=== PATIENT | female | born 1970 | race Caucasian/White ===

== ENCOUNTER 2020-03-01 13:10 | Emergency (ER) | payer BC, SELFPAY ==
[2020-03-01 13:10] VITALS: BP 152/82; PULSE 120; RESP 16; TEMP 37.7; O2SAT 98; BMI 43.8
--- NOTE | 2020-03-01 13:27 | CT_ITS ---
PROCEDURE: CT ABDOMEN PELVIS W CON CLINICAL INDICATION: pain, vomiting Right upper quadrant pain with vomiting and nausea COMPARISON: No exams were available for comparison TECHNIQUE: IV Contrast: 75ML OPTIRAY 350 Oral Contrast None Axial images obtained with sagittal and coronal reformats. All CT scans at the facility use one or more dose reduction, viz: automated exposure control, ma/kV adjustment per patient size (including targeted exams where dose is matched to indication, i.e. head), or iterative reconstruction technique. FINDINGS: LOWER THORAX: No acute finding. On the most superior image there is a 7 mm nodular opacity in the inferior aspect of the right breast. Mammography and ultrasound suggested for further evaluation. ABDOMEN & PELVIS: Fatty infiltration of the liver. No focal liver lesion is evident. There is mild splenomegaly at 13 cm. The pancreas, adrenal glands, and kidneys have an unremarkable appearance. There are few small periportal lymph nodes. No renal or ureteral calculi. No evidence of appendicitis. There are few colonic diverticula but no evidence of diverticulitis. No pelvic mass abnormal fluid collection or focal inflammatory change of the pelvis. There is degenerative disc disease at L5-S1 with a left paracentral disc osteophyte complex IMPRESSION: 1. No acute abdominal or pelvic findings. 2. Mild splenomegaly. 3. Possible right breast nodule. Mammogram and ultrasound suggested for further evaluation. 4. Other nonacute findings as described above Dictated by: Olman Pedroza MD 03/01/2020 15:24 Olman Pedroza MD in [place] 03/01/2020 15:24
[2020-03-01 13:45] LABS: Microscopic, Urine URINE MICROSCOPIC (MICROSCOPIC)
[2020-03-01 13:49] LABS: Appearance,Urine CLEAR (Clear); Bilirubin,Urine Negative (Negative); Blood, Urine TRACE-L (Negative); Color,Urine YELLOW (Yellow); Glucose,Urine (UA) Negative (Negative); Ketones,Urine Negative (Negative); Leukocyte Esterase,Urine Negative (Negative); Nitrate,Urine Negative (Negative); Protein,Urine Negative (Negative); Specific Gravity, Urine 1.025 (1.005-1.030); Urobilinogen,Urine 0.2 EU/dl (0.2)
[2020-03-01 13:51] LABS: Basophils % 0.7 % (0.1-2.0); Eosinophils % 1.5 % (0.1-12.0); Hematocrit 43.1 % (37.0-47.0); Hemoglobin 14.4 g/dL (12.2-16.2); Lymphocytes % 33.4 % (10-50); Mean Corpuscular HGB Conc 33.3 g/dL (31.8-35.4); Mean Corpuscular Hemoglobin 28.2 pg (27.0-31.2); Mean Corpuscular Volume 84.7 fl (81-99); Mean Platelet Volume 7.3 fl (7.4-10.4); Monocytes % 3.3 % (1.7-9.3); Neutrophils % 61.2 % (37.0-80.0); Platelet Count 389 K/mm3 (142-424); Red Blood Count 5.09 M/mm3 (4.20-5.40); Red Cell Distribution Width 14.6 % (11.5-17.5); White Blood Count 13.4 K/mm3 (4.8-10.8)
[2020-03-01 13:52] LABS: Basophils # 0.1 K/mm3 (0-0.2); Eosinophils # 0.2 K/mm3 (0.0-0.4); Lymphocytes # 4.5 K/mm3 (0.7-4.5); Monocytes # 0.4 K/mm3 (0.1-1.0); Neutrophils # 8.2 K/mm3 (1.8-7.8)
[2020-03-01 13:56] LABS: Amorphous Sediment,Urine 1+ /lpf; RBC,Urine Occasional #/hpf (0-3)
[2020-03-01 14:12] LABS: Chloride 97 mmol/L (98-107); Potassium 3.7 mmoL/L (3.5-5.1); Sodium 133 mmol/L (136-145)
[2020-03-01 14:15] LABS: Alanine Aminotransferase 28 U/L (12-78); Albumin Level 4.1 g/dl (3.5-5.0); Albumin/Globulin Ratio 1.2 (1.1-1.8); Alkaline Phosphatase 99 U/L (38-126); Anion Gap 13.7 mEq/L (5-15); Aspartate Amino Transferase 48 U/L (14-36); Bilirubin,Total 0.4 mg/dl (0.2-1.3); Blood Urea Nitrogen 16 mg/dl (7-17); Calcium 9.4 mg/dl (8.4-10.2); Carbon Dioxide 26 mmol/L (22.0-30.0); Creatinine Clearance Estimated 110 mL/min (50-200); Estimated Glomerular Filt Rate 106 ml/min (>60); GFR (African American) 129 ML/MIN (>60); Globulin 3.5 g/dL (1.3-3.2); Glucose 103 mg/dl (74-100); Lipase 67 U/L (23-300); Total Protein,Serum 7.6 g/dl (6.3-8.2)
[2020-03-01 14:32] LABS: Troponin I < 0.01 ng/ml (0.00-0.034)
--- NOTE | 2020-03-01 14:36 | HMH.EDABDPAI ---
ED Disposition Clinical Impression: Dyspepsia Disposition: Home, Self-Care Condition on Discharge: Good Instructions: DI for Dyspepsia Prescriptions: Famotidine [Pepcid] 40 mg PO DAILY #10 tab Transmission Status: Pending to [facility] Ondansetron [Zofran 4mg ODT] 4 mg PO TIDP PRN #10 tab PRN Reason: Nausea Transmission Status: Pending to [facility] Referrals: Pavel Kate [Primary Care Provider] - - Critical Care Critical Care Time: No Attestation: On 03/01/20, the high probability of a clinically significant, sudden or life threatening deterioration of the following system(s) required my full and direct attention, intervention and personal management. The time I documented below is in addition to time spent performing reported procedures but includes the following listed in this critical care notation. Medical Decision Making - Medical Records Medical records reviewed: Yes: I reviewed the patient's medical records. - Monico Inquiry Pt receiving controlled substance: No Vital Signs: 03/01/20 13:10 Temperature 99.9 F H Temperature Source Oral Pulse Rate [Radial] 120 H Respiratory Rate 16 Blood Pressure [Right Arm] 152/82 H Blood Pressure Mean [Right Arm] 105 Blood Pressure Position [Right Arm] Sitting 02 Sat by Pulse Oximetry 98 Oxygen Delivery Method Room Air - Lab Data Lab Results 03/01/20 13:20: WBC 13.4 H, RBC 5.09, Hgb 14.4, Hct 43.1, MCV 84.7, MCH 28.2, MCHC 33.3, RDW 14.6, Plt Count 389, MPV 7.3 L, Neut % (Auto) 61.2, Lymph % (Auto) 33.4, Stokes % (Auto) 3.3, Eos % (Auto) 1.5, Baso % (Auto) 0.7, Neut # (Auto) 8.2 H, Lymph # (Auto) 4.5, Stokes # (Auto) 0.4, Eos # (Auto) 0.2, Baso # (Auto) 0.1 03/01/20 13:42: Urine Color Yellow, Urine Appearance Clear, Urine pH 6.0, Ur Specific [place] 1.025, Urine Protein Negative, Urine Glucose (UA) Negative, Urine Ketones Negative, Urine Blood Trace-l, Urine Nitrate Negative, Urine Bilirubin Negative, Urine Urobilinogen 0.2, Ur Leukocyte Esterase Negative, Urine RBC Occasional, Urine WBC 3-5, Ur Squamous Epith Cells 3-5, Amorphous Sediment 1+, Urine Bacteria None 03/01/20 13:59: Sodium 133 L, Potassium 3.7, Chloride 97 L, Carbon Dioxide 26, Anion Gap 13.7, BUN 16, Creatinine 0.60, Estimated Creat Clear 110, Estimated GFR 106, Est GFR ( Amer) 129, Glucose 103 H, Calcium 9.4, Total Bilirubin 0.4, AST 48 H, ALT 28, Alkaline Phosphatase 99, Troponin I < 0.01, Total Protein 7.6, Albumin 4.1, Globulin 3.5 H, Albumin/Globulin Ratio 1.2, Lipase 67 Result diagrams: 03/01/20 13:20 03/01/20 13:59 Orders (Tests/Meds): ED MEDICATIONS Generic Name Dose Route Start Last Admin Trade Name Enq PRN Reason Stop Dose Admin Sodium Chloride 8 ml 03/01/20 13:27 Sodium Chloride 0.9% 10ml Vial IV 03/31/20 13:26 NEEDED PRN dilute pepcid Sodium Chloride 10 ml 03/01/20 14:23 03/01/20 14:27 Sodium Chloride 0.9% 10ml Syr (Rad Only) IV 03/31/20 14:22 10 ml NEEDED PRN Administration Maintain IV Site Discontinued Medications Generic Name Dose Route Start Last Admin Trade Name Enq PRN Reason Stop Dose Admin Diphenhydramine HCl 25 mg 03/01/20 13:27 03/01/20 13:34 Diphenhydramine 50mg/Ml Vial IV 03/01/20 13:28 25 mg ONCE ONE Administration Famotidine 20 mg 03/01/20 13:27 03/01/20 13:37 Famotidine 20mg/2ml Vial IV 03/01/20 13:28 20 mg ONCE ONE Administration Sodium Chloride 1,000 mls @ 999 mls/hr 03/01/20 13:30 03/01/20 13:37 Sod Chlor 0.9% 1000ml Bag IV 03/01/20 14:30 999 mls/hr .Q1H1M MINNA Administration Ioversol 75 ml 03/01/20 14:23 03/01/20 14:27 Ioversol-350 (74%) 100ml Vial IV 03/01/20 14:24 75 ml ONCE ONE Administration Protocol Ketorolac Tromethamine 30 mg 03/01/20 13:27 03/01/20 13:38 Ketorolac 30mg/Ml Vial IM 03/01/20 13:28 Not Given ONCE ONE Ketorolac Tromethamine 30 mg 03/01/20 13:39 03/01/20 13:39 Ketorolac 30mg/Ml Vial IV
[2020-03-01 14:48] VITALS: BP 145/74; PULSE 118; RESP 15; TEMP 37.2; O2SAT 98
== END 2020-03-01 14:53 | disposition home or self-care (01) ==
PROVIDERS: Emergency Provider Emergency Medicine; PCP Family Medicine
DX: R10.13 Epigastric pain (principal); K21.9 Gastro-esophageal reflux disease without esophagitis; I10 Essential (primary) hypertension; Z79.899 Other long term (current) drug therapy
CPT/HCPCS: 74177; 80053; 81001; 83690; 84484; 85025; 96365; 96375; 99283; J2405; Q9967

== ENCOUNTER 2020-10-04 21:56 | Emergency (ER) | payer BC, SELFPAY ==
[2020-10-04 21:57] VITALS: BP 150/73; PULSE 96; RESP 22; TEMP 36.6; O2SAT 97; BMI 45.4
--- NOTE | 2020-10-04 22:12 | XR_ITS ---
PROCEDURE INFORMATION: Exam: XR Chest Exam date and time: 10/04/2020 10:12 PM Age: 50 years old Clinical indication: Cough and shortness of breath and wheezing; Patient HX: Cough, SOA, wheezing, nonsmoker; Additional info: SOB TECHNIQUE: Imaging protocol: XR of the chest. Views: 2 views. COMPARISON: CR XR CHEST 2V 05/25/2019 3:34 PM FINDINGS: Lungs: Unremarkable. No consolidation. Pleural spaces: Unremarkable. No pleural effusion. No pneumothorax. Heart/Mediastinum: Unremarkable. No cardiomegaly. Bones/joints: Unremarkable. IMPRESSION: No evidence of a new cardiopulmonary process.
--- NOTE | 2020-10-04 22:13 | ECG_ITS ---
APPROVED REPORT Exam: Resting ECG HR:93 bpm ECG Measurements Heart Rate 93 AXES IA 130 P 61 QRSd 98 QRS 61 QT 346 T 41 QTc 430 Conclusion Normal sinus rhythm Normal ECG Electronically signed by : Gunner Bryant, 10/05/2020 07:51:26
--- NOTE | 2020-10-04 22:19 | HMH.EDSOB ---
ED Disposition Clinical Impression: Viral URI with cough Asthma exacerbation Qualifiers: Asthma severity: moderate Asthma persistence: unspecified Qualified Code(s): J45.901 - Unspecified asthma with (acute) exacerbation Disposition: Home, Self-Care Condition on Discharge: Good Instructions: Common Cold, DI for Asthma -- Adult Additional Instructions: Albuterol inhaler every 4 hours as needed for continued symptoms. Return to the ED for any new or worsening symptoms and follow-up with your primary care within 3-4 days Prescriptions: Doxycycline Hyclate [Doxycycline 100mg Capsule] 100 mg PO Q12 7 Days #14 cap Transmission Status: Pending to [facility] Referrals: Pavel Kate [Primary Care Provider] - Time of Disposition: 00:46 - Critical Care Critical Care Time: No Attestation: On 10/04/20, the high probability of a clinically significant, sudden or life threatening deterioration of the following system(s) required my full and direct attention, intervention and personal management. The time I documented below is in addition to time spent performing reported procedures but includes the following listed in this critical care notation. Medical Decision Making - Medical Records Medical records reviewed: Yes: I reviewed the patient's medical records. - Monico Inquiry Pt receiving controlled substance: No Vital Signs: 10/04/20 21:57 10/04/20 22:39 10/04/20 23:01 Temperature 97.9 F Temperature Source Oral Pulse Rate 95 H 100 H Pulse Rate [Right] 96 H Respiratory Rate 22 22 13 Blood Pressure 132/49 L 98/68 L Blood Pressure [Right Arm] 150/73 H Blood Pressure Mean [Right Arm] 98 02 Sat by Pulse Oximetry 97 97 97 10/04/20 23:55 10/04/20 23:56 Temperature Temperature Source Pulse Rate 81 81 Pulse Rate [Right] Respiratory Rate Blood Pressure Blood Pressure [Right Arm] Blood Pressure Mean [Right Arm] 02 Sat by Pulse Oximetry Orders (Tests/Meds): ED MEDICATIONS Generic Name Dose Route Start Last Admin Trade Name Freq PRN Reason Stop Dose Admin Magnesium Sulfate 2 gm/ Sodium 104 mls @ 100 mls/hr 10/04/20 23:52 10/04/20 23:56 Chloride IV 10/05/20 00:54 100 mls/hr ONCE ONE Administration Discontinued Medications Generic Name Dose Route Start Last Admin Trade Name Freq PRN Reason Stop Dose Admin Albuterol Sulfate 4 puffs 10/04/20 22:22 10/04/20 22:36 Albuterol-Hfa 90mcg/Puff Inhaler 8gm 10/04/20 22:23 4 puffs ONCE ONE Administration Albuterol/Ipratropium 6 ml 10/04/20 23:34 10/04/20 23:55 Ipratropium/Albuterol 3 Ml Neb 10/04/20 23:35 6 ml ONCE ONE Administration Dexamethasone 8 mg 10/04/20 22:20 10/04/20 22:25 Dexamethasone 4mg Tablet PO 10/04/20 22:21 8 mg ONCE ONE Administration Miscellaneous 1 unit 10/04/20 22:22 10/04/20 22:36 Aerochamber/Optihaler 10/04/20 22:23 1 unit ONCE ONE Administration - Radiology Data #1 Image(s): Chest Image Reviewed: Yes I reviewed the patient's radiology results, Yes I have reviewed radiologist's interpretation Preliminary Findings: Normal/NAD Medical Decision Narrative: 50-year-old female who presents with shortness of breath with viral URI type symptoms. We have mild asthma and does not use medication on a regular basis. She is consistent with asthmatic exacerbation with reactive cough prolonged expiration and diffuse wheezing. Patient is not in respiratory distress and her O2 sats are appropriate. Chest x-ray demonstrates no acute focal pneumonia. Due to her increased cough history of bronchitis patient will be treated for atypical pneumonia and also given 8 mg of dexamethasone as well as 4 puffs of an albuterol MDI. Patient still continues to have moderate wheezing. He was given 2 doses of DuoNeb and 2 g of IV magnesium sulfate. Following these interventions patient's wheezing is significantly improved her shortness of breath has most
[2020-10-04 22:39] VITALS: BP 132/49; PULSE 95; RESP 22; O2SAT 97
[2020-10-04 23:01] VITALS: BP 98/68; PULSE 100; RESP 13; O2SAT 97
[2020-10-04 23:31] VITALS: BP 103/76; PULSE 94; RESP 19; O2SAT 97
[2020-10-04 23:55] VITALS: PULSE 81
[2020-10-04 23:56] VITALS: PULSE 81
[2020-10-05 00:05] VITALS: BP 134/61; PULSE 95; RESP 29; O2SAT 94
[2020-10-05 00:30] VITALS: BP 130/67; PULSE 94; RESP 19; O2SAT 95
[2020-10-05 01:01] VITALS: BP 108/56; PULSE 88; RESP 14; O2SAT 97
[2020-10-05 01:59] VITALS: BP 108/56; PULSE 88; RESP 16; TEMP 36.6; O2SAT 97
== END 2020-10-05 01:30 | disposition home or self-care (01) ==
PROVIDERS: Emergency Provider Student in an Organized Health Care Education/Training Program; PCP Family Medicine
DX: J06.9 Acute upper respiratory infection, unspecified (principal); J45.901 Unspecified asthma with (acute) exacerbation; I10 Essential (primary) hypertension; K21.9 Gastro-esophageal reflux disease without esophagitis; Z79.899 Other long term (current) drug therapy
CPT/HCPCS: 71046; 93005; 96365; 99282

== ENCOUNTER 2020-12-21 19:01 | Emergency (ER) | payer BC, SELFPAY ==
[2020-12-21 19:31] VITALS: BP 159/89; PULSE 108; RESP 22; TEMP 37; O2SAT 96; BMI 43.8
--- NOTE | 2020-12-21 19:35 | XR_ITS ---
PROCEDURE INFORMATION: Exam: XR Chest Exam date and time: 12/21/2020 7:35 PM Age: 50 years old Clinical indication: Shortness of breath; Additional info: SOA TECHNIQUE: Imaging protocol: XR of the chest. Views: 2 views. COMPARISON: CR XR CHEST 2V 10/04/2020 10:15 PM FINDINGS: Lungs: Unremarkable. No consolidation. Pleural spaces: No pleural effusion. No pneumothorax. Heart/Mediastinum: Normal heart size. Bones/joints: Unremarkable. IMPRESSION: No acute findings.
[2020-12-21 19:41] LABS: Adenovirus,PCR Not Detected (NotDetected); Bordetella Pertussis Not Detected (NotDetected); Chlamydophila Pneumoniae, PCR Not Detected (NotDetected); Coronavirus 19, PCR Not Detected (NotDetected); Coronavirus 229E Not Detected (NotDetected); Coronavirus NL63 Not Detected (NotDetected); Coronavirus OC43 Not Detected (NotDetected); Coronovirus HKU1,PCR Not Detected (NotDetected); Human Metapneumovirus Not Detected (NotDetected); Influenza A, PCR Not Detected (NotDetected); Influenza AH1, 2009 Not Detected (NotDetected); Influenza AH1, PCR Not Detected (NotDetected); Influenza AH3,PCR Not Detected (NotDetected); Influenza B, PCR Not Detected (NotDetected); Mycoplasma Pneumoniae, PCR Not Detected (NotDetected); Parainfluenza 1, PCR Not Detected (NotDetected); Parainfluenza 2, PCR Not Detected (NotDetected); Parainfluenza 3, PCR Not Detected (NotDetected); Parainfluenza 4, PCR Not Detected (NotDetected); Respiratory Syncytial Virus Not Detected (NotDetected)
--- NOTE | 2020-12-21 19:41 | HMH.EDUTC ---
[facility] Disposition Clinical Impression: Acute bronchitis Qualifiers: Bronchitis organism: unspecified organism Qualified Code(s): J20.9 - Acute bronchitis, unspecified Disposition: Home, Self-Care Condition on Discharge: Good Instructions: DI for Acute Bronchitis, Preventing the Spread of Coronavirus Discharge Instructions Additional Instructions: Drink plenty of fluids. Take tylenol or ibuprofen for pain or fever. Take the medications as directed. Follow up with your regular doctor. GO TO THE ER FOR ANY WORSENING SYMPTOMS Quarantine until you know the results of your covid-19 test. If it is positive, the health department should call you and give you further instructions about your length of Quarantine and other thing. The cough medication (promethazine dm) will make you drowsy, so don't drive or operate heavy machinery after taking it. Prescriptions: guaiFENesin [Mucinex 600mg tablet] 1 - 2 tab PO BIDP PRN #30 tab.er.12h PRN Reason: Congestion Transmission Status: Received by [facility] Benzonatate [Tessalon Perle 100mg Cap] 100 mg PO TIDP PRN #30 cap PRN Reason: Cough Transmission Status: Received by [facility] Azithromycin [Z-Levi 250mg Tab*] 250 mg PO UD DOSE PK #6 tab Transmission Status: Received by [facility] Referrals: Pavel Kate [Primary Care Provider] - Forms: Work/School Release Time of Disposition: 19:56 Medical Decision Making - Medical Records Medical records reviewed: No: I reviewed the patient's medical records. - Monico Inquiry Pt receiving controlled substance: No Vital Signs: 12/21/20 19:31 12/21/20 20:13 Temperature 98.6 F 98.8 F Temperature Source Oral Pulse Rate 109 H Pulse Rate [Left] 108 H Respiratory Rate 22 22 Blood Pressure 161/85 H Blood Pressure [Right Arm] 159/89 H Blood Pressure Mean [Right Arm] 112 02 Sat by Pulse Oximetry 96 - Lab Data Lab results reviewed: Yes: I reviewed the patient's lab results. Orders (Tests/Meds): ORDERS Category Date Time Status Full Resp Panel w/COVID ([facility]) Routine Lab 12/21/20 19:20 Received - Radiology Data #1 Image(s): Chest Image Reviewed: Yes I reviewed the patient's radiology image, Yes I have reviewed radiologist's interpretation Preliminary Findings: Normal/NAD [facility] HPI - General Stated complaint: covid test, prossible bronchitis Time Seen by Provider: 12/21/20 19:41 Mode of Arrival: Ambulatory Source of Information: Patient Limitations: No Limitations Description of Symptoms (Recalled from Triage Doc. by RN): PT C/O SOA, BODY ACHES, WHEEZING, PRODUCTIVE COUGH WITH GREEN SPUTUM, AND FEVER. PT IS EDEMATOUS. HEENT Symptoms (Recalled from RN notes): No Resp Symptoms (Recalled from RN notes): Yes (WHEEZING, SOA, PRODUCTIVE COUGH WITH GREEN SPUTUM) Skin Symptoms (Recalled from RN notes): No MS Symptoms (Recalled from RN notes): No Functional Status (Recalled from RN notes): BODY ACHES AND FEVER - History of Present Illness Provider Complaint: She states that for the past 4 days she has felt bad and had a cough. She has had diarrhea also. She has been vaccinated against covid-19. - Related Data Home Medications Medication Instructions Recorded Confirmed cetirizine 10 mg capsule 10 mg PO DAILY 08/21/18 03/01/20 omeprazole 20 mg capsule,delayed 20 mg PO DAILY 08/21/18 03/01/20 release amlodipine 10 mg tablet 10 mg PO DAILY 11/13/18 03/01/20 Propranolol HCl [Propranolol HCl 120 mg PO DAILY 05/25/19 03/01/20 ER] Sertraline HCl [Zoloft 50mg tablet] 50 mg PO DAILY 05/25/19 03/01/20 Telmisartan 80 mg PO DAILY 05/25/19 03/01/20 diphenhydramine HCl 25 mg capsule 25 mg PO HS 06/16/20 06/16/20 loratadine 10 mg tablet 10 mg PO DAILY 06/16/20 06/16/20 Previous Rx's Medication Instructions Recorded Famotidine [Pepcid] 40 mg PO DAILY #10 tab 03/01/20 Ondansetron [Zofran 4mg ODT] 4 mg PO TIDP PRN #10 tab 03/01/20 amoxicillin 875 mg-potassium 1
[2020-12-21 20:13] VITALS: BP 161/85; PULSE 109; RESP 22; TEMP 37.1
[2020-12-22 01:04] LABS: Rhinovirus/Enterovirus Detected (NotDetected)
== END 2020-12-21 20:13 | disposition home or self-care (01) ==
PROVIDERS: Emergency Provider Nurse Practitioner Family; PCP Family Medicine
DX: B34.8 Other viral infections of unspecified site (principal); J20.9 Acute bronchitis, unspecified; I10 Essential (primary) hypertension; K21.9 Gastro-esophageal reflux disease without esophagitis; Z79.899 Other long term (current) drug therapy
CPT/HCPCS: 71046; 87581; 87633; 87798; 99202; G0463

== ENCOUNTER → 2021-05-27 20:00 | Outpatient (CLI) | payer BC, SELFPAY | PROVIDERS: Visit Provider Nurse Practitioner Family | DX: J02.9 Acute pharyngitis, unspecified (principal); Z20.822 Contact with and (suspected) exposure to COVID-19 | CPT/HCPCS: C9803; U0003; U0005 ==

== ENCOUNTER 2022-10-26 11:27 | Emergency (ER) | payer BC, SELFPAY ==
[2022-10-26 11:28] VITALS: BP 131/84; PULSE 82; RESP 18; TEMP 37.2; O2SAT 96; BMI 51.6
--- NOTE | 2022-10-26 11:45 | EXP.UTC ---
Discharge Plan Disposition Patient Disposition: Home, Self-Care Condition: Good Prescriptions Prescriptions: New amoxicillin-pot clavulanate 875-125 mg Tablet 1 tab PO Q12H 10 Days Qty: 20 0RF guaifenesin [Mucinex] 600 mg tablet extended release 12hr 600 - 1,200 mg PO BID PRN (Reason: cough/congestion) Qty: 20 0RF No Action omeprazole 20 mg capsule,delayed release(DR/EC) 20 mg PO DAILY Zyrtec 10 mg capsule 10 mg PO DAILY loratadine [Allergy Relief (loratadine)] 10 mg tablet 10 mg PO DAILY diphenhydramine HCl [Allergy (diphenhydramine)] 25 mg capsule 25 mg PO HS ondansetron 8 mg tablet,disintegrating 8 mg PO Q8H PRN (Reason: nausea and vomiting) 4 Days Qty: 12 0RF amlodipine 10 mg tablet 10 mg PO DAILY telmisartan 80 tablet 80 mg PO DAILY propranolol 120 capsule,extended release 24 hr 120 mg PO DAILY sertraline 50 MG tablet 50 mg PO DAILY doxycycline hyclate 100 MG capsule 100 mg PO Q12 7 Days Qty: 14 0RF famotidine 40 MG tablet 40 mg PO DAILY Qty: 10 0RF Referrals Follow up/Referrals: Pavel Kate [Primary Care Provider] - See instructions Activity Restrictions/Add. Instructions Additional Instructions/Restrictions: *Monitor Temp, Over the counter Motrin or Tylenol as directed/as needed Tylenol every 4 hours and Motrin every 6 hours (as long as your family doctor has told you that you can take it) for fever or pain. and straight to ER if unable to lower temp less than 101.0 after medication given *Warm salt water gargles may help to soothe the throat *Throat Lozenges? *Warm fluids like tea with honey may help to soothe the throat? *Sleep elevated *Humidifier/Vaporizer Your throat swab was sent for culture. Those results are typically sent to your primary care. Be sure to follow up in 2-3 days with your family doctor/primary care physician if no improvement so they can review those result and treat if necessary. If you don?t have a primary care doctor, I recommend you get one but in the mean time, you will have to return to a walk in clinic Follow up IMMEDIATELY for new or worsening symptoms or no Noticeable improvement over the next 48-72 hours. 911 for difficulty breathing or swallowing Clinical Impressions Clinical Impression: Sinusitis Stand Alone Forms Stand Alone Forms: Work/School Release Instructions Patient Instructions: DI for Sinusitis, Sinusitis Discharge ED Provider: Sherry Kilpatrick [facility] [place] HPI General Stated complaint: Blisters in throat, RT ear pain, Congestion Mode of Arrival: Ambulatory Source of Information: Patient Limitations: No Limitations Time Seen by Provider: 10/26/22 11:45 Description of Symptoms (Recalled from Triage Doc. by RN): Complaint of right ear and throat pain for 3 days. HEENT Symptoms (Recalled from RN notes): Yes Resp Symptoms (Recalled from RN notes): No Skin Symptoms (Recalled from RN notes): No MS Symptoms (Recalled from RN notes): No Functional Status (Recalled from RN notes): wnl History of Present Illness Provider Complaint: Patient states that she has been having pain in her right ear and sinus pain and pressure for close to a week and this morning she woke up and feels like she has blisters on her throat and hurts when she swallows States feels scratchy not sure if she may have strep throat or from the drainage in the back of her throat so she came in Related Data Home Medications Medication Instructions Recorded Confirmed cetirizine 10 mg capsule (Zyrtec) 10 mg PO DAILY Allergy symptoms 08/21/18 05/27/21 omeprazole 20 mg capsule,delayed 20 mg PO DAILY GERD 08/21/18 05/27/21 release amlodipine 10 mg tablet 10 mg PO DAILY Hypertension 11/13/18 05/27/21 propranolol 120 mg capsule,24 120 mg PO DAILY Hypertension 05/25/19 05/27/21 hr,extended release sertraline 50 mg tablet 50 mg PO DAILY HEART RATE 05/25/19 05/27/21 telmisartan 80 mg tablet 80 mg
[2022-10-26 11:56] LABS: UTC Strep Screen (Rapid) Negative (Negative)
[2022-10-26 12:07] VITALS: BP 131/84; PULSE 82; RESP 18; TEMP 37.2; O2SAT 96
== END 2022-10-26 12:08 | disposition home or self-care (01) ==
PROVIDERS: Emergency Provider Nurse Practitioner; PCP Family Medicine
DX: J01.90 Acute sinusitis, unspecified (principal); H92.01 Otalgia, right ear; R07.0 Pain in throat
CPT/HCPCS: 87880; 99212; 99214; G0463

== ENCOUNTER 2023-07-05 07:22 | Emergency (ER) | payer BC, SELFPAY ==
[2023-07-05] VITALS (12 sets, daily range): BP systolic 131–215; BP diastolic 70–112; PULSE 77–94; RESP 12–25; TEMP 37; O2SAT 95–97; BMI 47.0
--- NOTE | 2023-07-05 07:21 | ECG_ITS ---
APPROVED REPORT Exam: Resting ECG HR:94 bpm ECG Measurements Heart Rate 94 AXES MT 162 P 68 QRSd 102 QRS 64 QT 333 T 51 QTc 385 Conclusion SINUS RHYTHM NORMAL ECG UNCONFIRMED REPORT Electronically signed by : Gunner Bryant MD 07/05/2023 19:03:04
--- NOTE | 2023-07-05 07:24 | ED_ITS ---
Discharge Plan Disposition Patient Disposition: Home, Self-Care Condition: Good Prescriptions Prescriptions: No Action omeprazole 20 mg capsule,delayed release(DR/EC) 20 mg PO DAILY loratadine [Allergy Relief (loratadine)] 10 mg tablet 10 mg PO DAILY diphenhydramine HCl [Allergy (diphenhydramine)] 25 mg capsule 25 mg PO HS amlodipine 10 mg tablet 10 mg PO DAILY telmisartan 80 tablet 80 mg PO DAILY sertraline 50 MG tablet 50 mg PO DAILY celecoxib 200 mg capsule 200 mg PO BID Patient Comments: TAKE 1 CAPSULE BY MOUTH TWICE DAILY desog-e.estradiol/e.estradiol [Azurette (28)] 0.15-0.02 mgx21 /0.01 mg x 5 tablet 1 tab PO DAILY Patient Comments: TAKE 1 TABLET BY MOUTH ONCE DAILY Velivet Triphasic Regimen (28) 0.1/.125/.15-25 mg-mcg tablet 1 tab PO DAILY Patient Comments: TAKE 1 TABLET BY MOUTH ONCE DAILY cyanocobalamin (vitamin B-12) 500 mcg tablet 500 mcg PO DAILY Patient Comments: TAKE 1 TABLET BY MOUTH ONCE DAILY cholecalciferol (vitamin D3) 125 mcg (5,000 unit) capsule 125 mcg PO DAILY Patient Comments: TAKE 1 CAPSULE BY MOUTH ONCE DAILY famotidine 40 MG tablet 40 mg PO DAILY Qty: 10 0RF Referrals Follow up/Referrals: Pavel Kate [Primary Care Provider] - See instructions Activity Restrictions/Add. Instructions Additional Instructions/Restrictions: Please return to the emergency department if you experience any new or worsening symptoms. Clinical Impressions Clinical Impression: Headache Qualifiers: Headache type: other headache syndrome Qualified Code(s): G44.89 - Other headache syndrome Stand Alone Forms Stand Alone Forms: Work/School Release Discharge ED Provider: Mamadou Hernandez General Adult HPI General Chief complaint: Chest Pain Stated complaint: chest pain Time Seen by Provider: 07/05/23 07:24 History of Present Illness HPI narrative: Patient presents with multiple complaints, initially describes right-sided chest pain that is nonradiating nonpleuritic nonexertional nonreproducible with no associated palpitations or hemoptysis or leg pain or leg swelling. Additionally describes headache on her right side consistent with migrainous pathology in the past. She denies any thunderclap onset of the symptoms. They were gradual and slowly worsening. No numbness or tingling. No visual complaints. No fevers or chills. No nausea or vomiting. No previous therapies. Per chart review does have history of asthma but denies any shortness of breath. No blood thinner usage. No right extremity pain. Please note that above description of symptoms, in this electronic medical record under categorization of recalled from ER triage doctor by RN are reflective of an initial nursing assessment, however, is not reflective of my fu ll history and physical exam that was personally taken and clarified. Consequentially, this preceding description of symptoms, which may include the patient's categorized chief complaint in the EMR, do not reflect my personal clinical impression, and the ultimate description of history of present illness and patient stated complaints should be deferred to this section of the note. Unless stated otherwise or congruent with this section of the note, additional signs, symptoms, or incongruence should be interpreted as inaccurate with my clinical impression. Related Data Home Medications Medication Instructions Recorded Confirmed omeprazole 20 mg capsule,delayed 20 mg PO DAILY GERD 08/21/18 07/05/23 release amlodipine 10 mg tablet 10 mg PO DAILY Hypertension 11/13/18 07/05/23 sertraline 50 mg tablet 50 mg PO DAILY HEART RATE 05/25/19 07/05/23 telmisartan 80 mg tablet 80 mg PO DAILY Hypertension 05/25/19 07/05/23 diphenhydramine HCl 25 mg capsule 25 mg PO HS 06/16/20 07/05/23 (Allergy (diphenhydramine)) loratadine 10 mg tablet (Allergy 10 mg PO DAILY 06/16/20 07/05/23 Relief (loratadine)) celecoxib 200 mg capsule 200 mg PO BID 07/05/23 07/05/23 cholecalciferol (vitamin D3) 125 125 mcg PO DAILY 07/05/23 07/05/23 mcg (5,000 unit) capsule cyanocobalamin (vitamin B-12) 500 500 mcg PO DAILY 07/05/23 07/05/23 mcg tablet desogestrel-e.estradiol 0.15 1 tab PO DAILY 07/05/23 07/05/23 mg-0.02 mg(21)/e.estrad 0.01 mg(5) tablet (Anup (28)) desogestrel-ethinyl estradiol 0.1 1 tab PO DAILY 07/05/23 07/05/23 mg/0.125 mg/0.15 mg-25 mcg tablet (Velivet Triphasic Regimen (28)) Previous Rx's Medication Instructions Recorded famotidine 40 mg tablet 40 mg PO DAILY #10 tabs 03/01/20 Allergies Allergy/AdvReac Type Severity Reaction Status Date / Time prednisone [PREDNISONE] Allergy Mild Verified 05/27/21 13:46 [facility] Disclaimer: The information contained in this section may have been updated after the patient was seen, as this information can be updated by other users. Social History Smoking Status: Never smoker alcohol intake: never substance use type: denies use current occupational status: employed Travel in the last 8 weeks: None household members: other housing: house ROS Obtained: Yes Systems reviewed as appropriate & no additional complaints except as documented As per HPI Physical Exam General General appearance: alert and in no apparent distress Head Head exam: atraumatic and normocephalic Eye Eye exam: Present normal appearance Neck Neck exam: Present normal inspection Chest Chest inspection: Present normal inspection and symmetric chest wall rise Respiratory Respiratory exam: Present normal lung sounds bilaterally; Absent respiratory distress Cardiovascular Cardiovascular exam: Present regular rate and normal rhythm Abdominal Exam Abdominal exam: Present soft Neurological Exam Neurological exam: Present alert, oriented X3 and CN II-XII intact Psychiatric Psychiatric exam: Present normal affect and normal mood Skin Skin exam: Present warm and dry Medical Decision Making Medical Records Medical records reviewed: Yes I reviewed the patient's medical records. Monico Inquiry Pt receiving controlled substance: No Vital Signs: 07/05/23 07:23 07/05/23 07:40 07/05/23 07:30 Temperature 98.6 F Temperature Source Oral Pulse Rate 88 88 Pulse Rate [Right] 92 H Respiratory Rate 25 H 12 Blood Pressure 169/83 H Blood Pressure [Right Arm] 145/77 H Blood Pressure Mean [Right Arm] 99 02 Sat by Pulse Oximetry 95 96 Oxygen Delivery Method Room Air 07/05/23 08:00 07/05/23 08:02 07/05/23 08:30 Temperature Temperature Source Pulse Rate 86 89 83 Pulse Rate [Right] Respiratory Rate 15 13 15 Blood Pressure 215/112 H 200/84 H Blood Pressure [Right Arm] Blood Pressure Mean [Right Arm] 02 Sat by Pulse Oximetry 96 97 96 Oxygen Delivery Method Room Air Room Air 07/05/23 08:57 07/05/23 09:01 07/05/23 09:31 Temperature Temperature Source Pulse Rate 85 79 78 Pulse Rate [Right] Respiratory Rate 13 19 22 Blood Pressure 150/73 H 146/71 H 137/72 Blood Pressure [Right Arm] Blood Pressure Mean [Right Arm] 02 Sat by Pulse Oximetry 97 95 97 Oxygen Delivery Method Room Air Room Air Room Air 07/05/23 10:01 07/05/23 10:31 07/05/23 10:50 Temperature 98.6 F Temperature Source Oral Pulse Rate 94 H 78 77 Pulse Rate [Right] Respiratory Rate 17 20 19 Blood Pressure 151/70 H 131/70 131/70 Blood Pressure [Right Arm] Blood Pressure Mean [Right Arm] 02 Sat by Pulse Oximetry 96 95 Oxygen Delivery Method Room Air Room Air Room Air Lab Data Lab Results 07/05/23 07:25: WBC 11.4 H, RBC 4.21, Hgb 12.4, Hct 37.0, MCV 88.0, MCH 29.6, MCHC 33.6, RDW 14.7, Plt Count 337, MPV 7.4, Neut % (Auto) 62.3, Lymph % (Auto) 32.6, Centre % (Auto) 3.4, Eos % (Auto) 1.3, Baso % (Auto) 0.4, Neut # (Auto) 7.1, Lymph # (Auto) 3.7, Centre # (Auto) 0.4, Eos # (Auto) 0.2, Baso # (Auto) 0.1, Sodium 139, Potassium 3.3 L, Chloride 103, Carbon Dioxide 33 H, Anion Gap 6.3, BUN 10, Creatinine 0.70, Estimated Creat Clear 91, Estimated GFR 88, Est GFR ( Amer) 106, Glucose 118 H, Calcium 9.2, Total Bilirubin 0.7, AST 50 H, ALT 46, Alkaline Phosphatase 96, Troponin I < 0.01, Total Protein 7.5, Albumin 4.1, Globulin 3.4 H, Albumin/Globulin Ratio 1.2 07/05/23 07:54: SARS-CoV-2 (PCR) Not detected, Influenza A Untype (PCR) Not detected, Influenza Type B (PCR) Not detected 07/05/23 09:58: Troponin I < 0.01 07/05/23 07:25 07/05/23 07:25 Orders (Tests/Meds): ED MEDICATIONS Discontinued Medications Generic Name Dose Route Start Last Admin Trade Name Westley PRN Reason Stop Dose Admin Aspirin 325 mg 07/05/23 07:38 07/05/23 07:53 Aspirin 325mg Tablet PO 07/05/23 07:39 325 mg ONCE ONE Administration Diphenhydramine HCl 25 mg 07/05/23 08:07 07/05/23 08:26 Diphenhydramine 50mg/Ml Vial IV 07/05/23 08:08 25 mg ONCE ONE Administration Lactated Ringer's 1,000 mls @ 999 mls/hr 07/05/23 08:07 07/05/23 08:25 Lactated Ringer's 1000 Ml Bag IV 07/05/23 09:07 999 mls/hr .Q1H1M ONE Administration Magnesium Sulfate 2 gm in 50 mls @ 50 mls/hr 07/05/23 08:07 07/05/23 08:29 Magnesium Sulfate 2gm/50ml Premix IV 07/05/23 09:06 50 mls/hr ONCE ONE Administration Ketorolac Tromethamine 15 mg 07/05/23 08:07 07/05/23 08:26 Ketorolac 30mg/Ml Vial IV 07/05/23 08:08 15 mg ONCE ONE Administration Nitroglycerin 0.4 mg 07/05/23 07:38 07/05/23 07:52 Nitroglycerin 0.4mg Sl Tablet SL 08/04/23 07:37 0.4 mg Q5MINP PRN Administration Chest Pain Prochlorperazine Edisylate 10 mg 07/05/23 08:07 07/05/23 08:26 Prochlorperazine 10mg/2ml Vial IM 07/05/23 08:08 Not Given ONCE ONE Prochlorperazine Edisylate 10 mg 07/05/23 08:27 07/05/23 08:28 Prochlorperazine 10mg/2ml Vial IV 07/05/23 08:28 10 mg ONCE ONE Administration Sodium Chloride 10 ml 07/05/23 07:51 07/05/23 08:27 Sodium Chloride 0.9% 10ml Flush Syringe IV 08/04/23 07:50 10 ml NEEDED PRN Administration Maintain IV Site ORDERS Category Date Time Status XR chest 2V Stat Exams 07/05/23 07:38 Completed CBC w/Auto Diff [Complete Blood Count Auto Diff] Stat Lab 07/05/23 07:25 Completed CMP [Comprehensive Metabolic Panel] Stat Lab 07/05/23 07:25 Completed Rapid PCR Covid and Flu A/B Stat Lab 07/05/23 07:54 Completed Troponin I Q2H Lab 07/05/23 07:25 Completed Troponin I Q2H Lab 07/05/23 09:58 Completed ECG initial Besson Routine Y 07/05/23 07:21 Completed HEART Score History (anamnesis): Moderately suspicious ECG: Non-specific disturbance Age: <45 years Risk factors: 1-2 risk factors Troponin: </= normal limit HEART Score: 3 Medical Decision Narrative: Patient with history and exam per above presenting for evaluation of multiple complaints including chest pain, headache Diagnoses considered include migraine, ACS, pneumonia, viral URI, hypovolemia, p atient's HPI, especially in the absence of any neurologic deficits on exam and benign clinical appearance did not warrant workup for vertebral artery dissection at this time. ED workup and treatment included: ED MEDICATIONS Discontinued Medications Generic Name Dose Route Start Last Admin Trade Name Freq PRN Reason Stop Dose Admin Aspirin 325 mg 07/05/23 07:38 07/05/23 07:53 Aspirin 325mg Tablet PO 07/05/23 07:39 325 mg ONCE ONE Administration Diphenhydramine HCl 25 mg 07/05/23 08:07 07/05/23 08:26 Diphenhydramine 50mg/Ml Vial IV 07/05/23 08:08 25 mg ONCE ONE Administration Lactated Ringer's 1,000 mls @ 999 mls/hr 07/05/23 08:07 07/05/23 08:25 Lactated Ringer's 1000 Ml Bag IV 07/05/23 09:07 999 mls/hr .Q1H1M ONE Administration Magnesium Sulfate 2 gm in 50 mls @ 50 mls/hr 07/05/23 08:07 07/05/23 08:29 Magnesium Sulfate 2gm/50ml Premix IV 07/05/23 09:06 50 mls/hr ONCE ONE Administration Ketorolac Tromethamine 15 mg 07/05/23 08:07 07/05/23 08:26 Ketorolac 30mg/Ml Vial IV 07/05/23 08:08 15 mg ONCE ONE Administration Nitroglycerin 0.4 mg 07/05/23 07:38 07/05/23 07:52 Nitroglycerin 0.4mg Sl Tablet SL 08/04/23 07:37 0.4 mg Q5MINP PRN Administration Chest Pain Prochlorperazine Edisylate 10 mg 07/05/23 08:07 07/05/23 08:26 Prochlorperazine 10mg/2ml Vial IM 07/05/23 08:08 Not Given ONCE ONE Prochlorperazine Edisylate 10 mg 07/05/23 08:27 07/05/23 08:28 Prochlorperazine 10mg/2ml Vial IV 07/05/23 08:28 10 mg ONCE ONE Administration Sodium Chloride 10 ml 07/05/23 07:51 07/05/23 08:27 Sodium Chloride 0.9% 10ml Flush Syringe IV 08/04/23 07:50 10 ml NEEDED PRN Administration Maintain IV Site ORDERS Category Date Time Status XR chest 2V Stat Exams 07/05/23 07:38 Completed CBC w/Auto Diff [Complete Blood Count Auto Diff] Stat Lab 07/05/23 07:25 Completed CMP [Comprehensive Metabolic Panel] Stat Lab 07/05/23 07:25 Completed Rapid PCR Covid and Flu A/B Stat Lab 07/05/23 07:54 Completed Troponin I Q2H Lab 07/05/23 07:25 Completed Troponin I Q2H Lab 07/05/23 09:58 Completed ECG initial Besson Routine Y 07/05/23 07:21 Completed Labs were independently interpreted by me, significant for leukocytosis to 11.4, troponins within normal limits Imaging was independently visualized and interpreted by me, significant for no acute findings. Please refer to radiology report for full details. My clinical impression at this time is most consistent with migrainous headache as patient has marked improvement of symptoms after migraine cocktail. I discussed my clinical impression with patient and answered all questions. At this time, the evidence for any other entities in the differential is insufficient to warrant any further testing or ED observation. This was explained to the patient. The patient was advised that persistent or worsening symptoms require further evaluation. I confirmed the patient's understanding of this discussion. Critical Care Critical Care Time Critical Care Time: No
--- NOTE | 2023-07-05 07:38 | XR_ITS ---
FINAL REPORT CLINICAL HISTORY: L sided CP, radiates to shoulder/neck COMPARISON: 03/24/2016 FINDINGS: PA and lateral views of the chest were obtained. The cardiac and mediastinal silhouettes are within normal limits. The lungs are clear. There is no pleural effusion or pneumothorax. No acute osseous abnormality is identified. IMPRESSION: No radiographic evidence of acute cardiac or pulmonary disease. Unchanged from prior. Reviewed, Interpreted and Dictated by Jelena Rich MD Transcribed by Alcira Melara Authenticated and [facility]
[2023-07-05 07:50] LABS: Basophils # 0.1 K/mm3 (0-0.2); Basophils % 0.4 % (0.1-2.0); Eosinophils # 0.2 K/mm3 (0.0-0.4); Eosinophils % 1.3 % (0.1-12.0); Hemoglobin 12.4 g/dL (12.2-16.2); Lymphocytes # 3.7 K/mm3 (0.7-4.5); Lymphocytes % 32.6 % (10-50); Mean Corpuscular HGB Conc 33.6 g/dL (31.8-35.4); Mean Corpuscular Hemoglobin 29.6 pg (27.0-31.2); Mean Platelet Volume 7.4 fl (7.4-10.4); Monocytes # 0.4 K/mm3 (0.1-1.0); Monocytes % 3.4 % (1.7-9.3); Neutrophils # 7.1 K/mm3 (1.8-7.8); Neutrophils % 62.3 % (37.0-80.0); Platelet Count 337 K/mm3 (142-424); Red Blood Count 4.21 M/mm3 (4.20-5.40); Red Cell Distribution Width 14.7 % (11.5-17.5); White Blood Count 11.4 K/mm3 (4.8-10.8)
[2023-07-05] MEDS: NITROGLYCERIN 0.4MG SL TABLET 0.400000000000000022 MG SL (07:52)
[2023-07-05] MEDS: ASPIRIN 325MG TABLET 325 MG PO (07:53)
[2023-07-05 07:55] LABS: Chloride 103 mmol/L (98-107)
[2023-07-05 07:56] LABS: Potassium 3.3 mmoL/L (3.5-5.1); Sodium 139 mmol/L (136-145)
[2023-07-05 07:58] LABS: Alanine Aminotransferase 46 U/L (12-78); Alkaline Phosphatase 96 U/L (38-126); Aspartate Amino Transferase 50 U/L (14-36); Bilirubin,Total 0.7 mg/dl (0.2-1.3); Blood Urea Nitrogen 10 mg/dl (7-17); Creatinine Clearance Estimated 91 mL/min (50-200); Estimated Glomerular Filt Rate 88 ml/min (>60); GFR (African American) 106 ML/MIN (>60)
[2023-07-05 07:59] LABS: Albumin Level 4.1 g/dl (3.5-5.0); Albumin/Globulin Ratio 1.2 (1.1-1.8); Anion Gap 6.3 mEq/L (5-15); Calcium 9.2 mg/dl (8.4-10.2); Carbon Dioxide 33 mmol/L (22.0-30.0); Globulin 3.4 g/dL (1.3-3.2); Glucose 118 mg/dl (74-100); Total Protein,Serum 7.5 g/dl (6.3-8.2)
--- NOTE | 2023-07-05 08:01 | PC.NURSE ---
turned pt lights off call light at bs
[2023-07-05 08:02] LABS: Coronavirus 19, PCR Not Detected (NotDetected); Influenza A, PCR Not Detected (NotDetected); Influenza B, PCR Not Detected (NotDetected)
--- NOTE | 2023-07-05 08:07 | PC.NURSE ---
Rounded on pt, nitro has not relieved her shoulder, neck, and back pain. States now her head is about to bust . Dr. Hernandez notified of this and new orders placed.
[2023-07-05 08:11] LABS: Troponin I < 0.01 ng/ml (0.00-0.034)
[2023-07-05] MEDS: LACTATED RINGERS 1000ML 1,000 ML 999 ML IV (08:25)
[2023-07-05] MEDS: diphenhydrAMINE 50MG/ML VIAL 25 MG IV (08:26)
[2023-07-05] MEDS: KETOROLAC 30MG/ML VIAL 15 MG IV (08:26)
[2023-07-05] MEDS: SODIUM CHLORIDE 0.9% 10ML FLUSH SYRINGE 10 ML IV (08:27)
[2023-07-05] MEDS: PROCHLORPERAZINE 10MG/2ML VIAL 10 MG IV (08:28)
[2023-07-05] MEDS: MAGNESIUM SULFATE IN WATER 2 GM/50 ML PIGGYBACK IV (08:29)
--- NOTE | 2023-07-05 09:00 | PC.NURSE ---
ROUNDED ON PT STATED NO NEEDS AT THIS TIME,CALL LIGHT AT BS
[2023-07-05 10:27] LABS: Troponin I < 0.01 ng/ml (0.00-0.034)
--- NOTE | 2023-07-05 10:33 | PC.NURSE ---
ROUNDED ON PT STATED NO NEEDS AT THIS TIME,CALL LIGHT AT BS
--- NOTE | 2023-07-05 10:59 | PC.NURSE ---
Dr. Hernandez at bedside discussing d/c and results.
--- NOTE | 2023-07-05 12:41 | PC.NURSE ---
Reviewed pt's d/c instructions with her, however she still has part of her Magnesium left to run. Will complete infusion and then d/c from room.
== END 2023-07-05 12:24 | disposition home or self-care (01) ==
PROVIDERS: Emergency Provider Emergency Medicine; PCP Family Medicine
DX: G44.89 Other headache syndrome (principal); R07.9 Chest pain, unspecified; J45.909 Unspecified asthma, uncomplicated; D72.829 Elevated white blood cell count, unspecified
CPT/HCPCS: 71046; 80053; 84484; 85025; 87636; 93005; 96361; 96365; 96375; 99285; J3475

== ENCOUNTER 2024-06-11 10:51 | Emergency (ER) | payer BC, SELFPAY ==
[2024-06-11] VITALS (10 sets, daily range): BP systolic 167–216; BP diastolic 81–108; PULSE 88–113; RESP 18–20; TEMP 36.7–37.2; O2SAT 96–99; BMI 48.5
--- NOTE | 2024-06-11 12:39 | EXP.UTC ---
Discharge Plan Prescriptions Prescriptions: No Action omeprazole 20 mg capsule,delayed release(DR/EC) 20 mg PO DAILY loratadine [Allergy Relief (loratadine)] 10 mg tablet 10 mg PO DAILY diphenhydramine HCl [Allergy (diphenhydramine)] 25 mg capsule 25 mg PO HS amlodipine 10 mg tablet 10 mg PO DAILY telmisartan 80 tablet 80 mg PO DAILY sertraline 50 MG tablet 50 mg PO DAILY celecoxib 200 mg capsule 200 mg PO BID Patient Comments: TAKE 1 CAPSULE BY MOUTH TWICE DAILY desog-e.estradiol/e.estradiol [Azurette (28)] 0.15-0.02 mgx21 /0.01 mg x 5 tablet 1 tab PO DAILY Patient Comments: TAKE 1 TABLET BY MOUTH ONCE DAILY Velivet Triphasic Regimen (28) 0.1/.125/.15-25 mg-mcg tablet 1 tab PO DAILY Patient Comments: TAKE 1 TABLET BY MOUTH ONCE DAILY cyanocobalamin (vitamin B-12) 500 mcg tablet 500 mcg PO DAILY Patient Comments: TAKE 1 TABLET BY MOUTH ONCE DAILY cholecalciferol (vitamin D3) 125 mcg (5,000 unit) capsule 125 mcg PO DAILY Patient Comments: TAKE 1 CAPSULE BY MOUTH ONCE DAILY famotidine 40 MG tablet 40 mg PO DAILY Qty: 10 0RF Referrals Follow up/Referrals: Pavel Kate [Primary Care Provider] - See instructions Clinical Impressions Clinical Impression: Hypertension, Headache Print Language Print Language: Slovak Discharge ED Provider: [facility] [place] HPI General Stated complaint: Headache, Neck getting stiff Time Seen by Provider: 06/11/24 12:39 History of Present Illness Provider Complaint: She states that she has had a worsening head ache (occipital area) for the past 1 day. She has also had neck stiffness and upper back pain. She states that throughout last night she had periods of tachycardia. 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 Related Data Home Medications ?Medication ?Instructions ?Recorded ?Confirmed omeprazole 20 mg capsule,delayed 20 mg PO DAILY GERD 08/21/18 06/11/24 release amlodipine 10 mg tablet 10 mg PO DAILY Hypertension 11/13/18 07/05/23 sertraline 50 mg tablet 50 mg PO DAILY HEART RATE 05/25/19 06/11/24 telmisartan 80 mg tablet 80 mg PO DAILY Hypertension 05/25/19 06/11/24 diphenhydramine HCl 25 mg capsule 25 mg PO HS 06/16/20 07/05/23 (Allergy (diphenhydramine)) loratadine 10 mg tablet (Allergy 10 mg PO DAILY 06/16/20 07/05/23 Relief (loratadine)) celecoxib 200 mg capsule 200 mg PO BID 07/05/23 07/05/23 cholecalciferol (vitamin D3) 125 125 mcg PO DAILY 07/05/23 07/05/23 mcg (5,000 unit) capsule cyanocobalamin (vitamin B-12) 500 500 mcg PO DAILY 07/05/23 07/05/23 mcg tablet desogestrel-e.estradiol 0.15 1 tab PO DAILY 07/05/23 07/05/23 mg-0.02 mg()/e.estrad 0.01 mg() tablet (Azurette ()) desogestrel-ethinyl estradiol 0.1 1 tab PO DAILY 07/05/23 07/05/23 mg/0.125 mg/0.15 mg-25 mcg tablet (Velivet Triphasic Regimen ()) Previous Rx's ?Medication ?Instructions ?Recorded famotidine 40 mg tablet 40 mg PO DAILY #10 tabs 03/01/20 Allergies Allergy/AdvReac Type Severity Reaction Status Date / Time prednisone (PREDNISONE) Allergy Mild Verified 05/27/21 13:46 [facility] Disclaimer: The information contained in this section may have been updated after the patient was seen, as this information can be updated by other users. Social History Smoking Status: Never smoker alcohol intake: never substance use type: denies use current occupational status: employed Travel in the last 8 weeks: None household members: other housing: house Have you lived/traveled outside [place] in past 30 days?: No Contact w/someone who lives/traveled outside [place] past 30 days?: No Exposure to someone with infectious disease in past 14 days?: No Do you have a fever (greater than 100.4 F or 38 C)?: No Have you tested positive for COVID-19: No Exposed to someone with COVID-19 in past 14 days?: No Do you have a sore throat?: No Do you have a cough?: No Do you have any weakness?: No Do you have any diarrhea?: No Are you experiencing any unusual bleeding?: No Do you have any muscle aches/pain?: Yes Do you have any abdominal pain?: No Are you experiencing loss of taste or smell?: No ROS Obtained: Yes All systems reviewed & no additional complaints except as documented Constitutional Constitutional: Denies chills, Denies fever(s) and Reports headache(s) Eyes Eyes: Denies eye discharge ENT Ears, Nose, Mouth, and Throat: Denies dizziness, Denies otalgia, Reports headache(s), Reports neck pain and Denies sore throat Cardiovascular Cardiovascular: Denies chest pain Respiratory Respiratory: Denies shortness of breath, Denies chest congestion, Denies cough, Denies stridor and Denies wheezing Gastrointestinal Gastrointestingal: Denies nausea or vomiting Musculoskeletal Musculoskeletal: Reports as per HPI, Reports back pain and Reports neck pain Integumentary/Breasts Skin/Breast: Denies rash Neurologic Neurologic: Denies dizziness, Reports headache(s) and Denies paresthesias Allergic/Immunologic Allergic/Immunologic: Denies wheezing Physical Exam General General appearance: alert and in no apparent distress Head Head exam: atraumatic, normocephalic and normal inspection Eye Eye exam: Present normal appearance, PERRL and EOMI ENT ENT exam: Present normal exam, normal oropharynx, mucous membranes moist, TM's normal bilaterally and normal external ear exam Neck Neck exam: Present normal inspection, full ROM and trachea midline; Absent meningismus or lymphadenopathy Chest Chest inspection: Present normal inspection and symmetric chest wall rise; Absent tenderness Respiratory Respiratory exam: Present normal lung sounds bilaterally; Absent respiratory distress Cardiovascular Cardiovascular exam: Present regular rate and normal rhythm; Absent JVD Abdominal Exam Abdominal exam: Present soft and normal bowel sounds; Absent distention, tenderness or guarding Extremities Exam Extremities exam: Present normal inspection, full ROM and normal capillary refill; Absent calf tenderness Back Exam Back exam: Present normal inspection; Absent tenderness Neurological Exam Neurological exam: Present alert and oriented X3 Psychiatric Psychiatric exam: Present normal affect and normal mood Skin Skin exam: Present warm, dry, intact and normal color Lymphatic Lymphatic Findings: no adenopathy Medical Decision Making Medical Records Medical records reviewed: No I reviewed the patient's medical records. Screening: Per USPSTF and CDC recommendations, given the prevalence of disease in our region, it is our hospital?s policy to screen for HIV and viral Hepatitis for all patients aged 18 and over and those with ongoing risk factors. Monico Inquiry Pt receiving controlled substance: No Medical Decision Narrative: She was transferred to the ER due to her elevated blood pressure and headache.
--- NOTE | 2024-06-11 12:49 | ED_ITS ---
Discharge Plan Disposition Patient Disposition: Home, Self-Care Condition: Good Prescriptions Prescriptions: New methocarbamol 750 mg tablet 750 mg PO Q6H PRN (Reason: muscle spasm) Qty: 20 0RF ondansetron 4 mg tablet,disintegrating 4 mg PO Q6H PRN (Reason: nausea and vomiting) Qty: 10 0RF No Action omeprazole 20 mg capsule,delayed release(DR/EC) 20 mg PO DAILY loratadine [Allergy Relief (loratadine)] 10 mg tablet 10 mg PO DAILY diphenhydramine HCl [Allergy (diphenhydramine)] 25 mg capsule 25 mg PO HS amlodipine 10 mg tablet 10 mg PO DAILY telmisartan 80 tablet 80 mg PO DAILY sertraline 50 MG tablet 50 mg PO DAILY celecoxib 200 mg capsule 200 mg PO BID Patient Comments: TAKE 1 CAPSULE BY MOUTH TWICE DAILY desog-e.estradiol/e.estradiol [Azurette (28)] 0.15-0.02 mgx21 /0.01 mg x 5 tablet 1 tab PO DAILY Patient Comments: TAKE 1 TABLET BY MOUTH ONCE DAILY Velivet Triphasic Regimen (28) 0.1/.125/.15-25 mg-mcg tablet 1 tab PO DAILY Patient Comments: TAKE 1 TABLET BY MOUTH ONCE DAILY cyanocobalamin (vitamin B-12) 500 mcg tablet 500 mcg PO DAILY Patient Comments: TAKE 1 TABLET BY MOUTH ONCE DAILY cholecalciferol (vitamin D3) 125 mcg (5,000 unit) capsule 125 mcg PO DAILY Patient Comments: TAKE 1 CAPSULE BY MOUTH ONCE DAILY famotidine 40 MG tablet 40 mg PO DAILY Qty: 10 0RF Referrals Follow up/Referrals: Pavel Kate [Primary Care Provider] - See instructions Activity Restrictions/Add. Instructions Additional Instructions/Restrictions: Please follow-up with your PCP for recheck within 48 hours if your symptoms do not improve change or worsen. May return to the ER as needed as well. I have sent medications to your pharmacy to help with your symptoms. Clinical Impressions Clinical Impression: Headache Qualifiers: Headache type: unspecified Headache chronicity pattern: acute headache I ntractability: not intractable Qualified Code(s): R51.9 - Headache, unspecified Print Language Print Language: Trinidadian Discharge ED Provider: Beto Obrien General Adult HPI <STACY Saini - Last Filed: 06/11/24 15:57> General Chief complaint: Arrhythmia/Palpitations Stated complaint: Headache, Neck getting stiff Time Seen by Provider: 06/11/24 12:39 Mode of Arrival: Ambulatory Source of Information: Patient Description of Symptoms (Recalled from ER Triage Doc. by RN): ALBERT, SWELLING L FACIAL, STIFF NECK, BACK PAIN History of Present Illness HPI narrative: Patient presents for evaluation of a headache. Patient states that she has had neck and posterior upper back muscle pain for 3 days. She states has gotten progressive and now she has a whole head headache. She denies any nuchal rigidity she denies any focal neurologic deficits or findings she denies any change in vision or sensory. She does have a history of migraines however this is different than her normal migraine which is usually hemispheric. She reports photophobia and slight phonophobia. She denies any chest pain shortness of breath fever chills hemoptysis hematochezia melena vomiting or diarrhea but is nauseous Related Data Home Medications ?Medication ?Instructions ?Recorded ?Confirmed omeprazole 20 mg capsule,delayed 20 mg PO DAILY GERD 08/21/18 06/11/24 release amlodipine 10 mg tablet 10 mg PO DAILY Hypertension 11/13/18 06/11/24 sertraline 50 mg tablet 50 mg PO DAILY HEART RATE 05/25/19 06/11/24 telmisartan 80 mg tablet 80 mg PO DAILY Hypertension 05/25/19 06/11/24 diphenhydramine HCl 25 mg capsule 25 mg PO HS 06/16/20 06/11/24 (Allergy (diphenhydramine)) loratadine 10 mg tablet (Allergy 10 mg PO DAILY 06/16/20 06/11/24 Relief (loratadine)) celecoxib 200 mg capsule 200 mg PO BID 07/05/23 06/11/24 cholecalciferol (vitamin D3) 125 125 mcg PO DAILY 07/05/23 06/11/24 mcg (5,000 unit) capsule cyanocobalamin (vitamin B-12) 500 500 mcg PO DAILY 07/05/23 06/11/24 mcg tablet desogestrel-e.estradiol 0.15 1 tab PO DAILY 07/05/23 06/11/24 mg-0.02 mg(21)/e.estrad 0.01 mg(5) tablet (Anup ()) desogestrel-ethinyl estradiol 0.1 1 tab PO DAILY 07/05/23 06/11/24 mg/0.125 mg/0.15 mg-25 mcg tablet (Velivet Triphasic Regimen (28)) Previous Rx's ?Medication ?Instructions ?Recorded famotidine 40 mg tablet 40 mg PO DAILY #10 tabs 03/01/20 methocarbamol 750 mg tablet 750 mg PO Q6H PRN muscle spasm #20 06/11/24 tabs ondansetron 4 mg disintegrating 4 mg PO Q6H PRN nausea and 06/11/24 tablet vomiting #10 tabs Allergies Allergy/AdvReac Type Severity Reaction Status Date / Time prednisone (PREDNISONE) Allergy Mild Verified 05/27/21 13:46 PFSH <STACY Saini - Last Filed: 06/11/24 15:57> [facility] Disclaimer: The information contained in this section may have been updated after the patient was seen, as this information can be updated by other users. Social History Smoking Status: Never smoker alcohol intake: never substance use type: denies use current occupational status: employed Travel in the last 8 weeks: None household members: other housing: house Have you lived/traveled outside US in past 30 days?: No Contact w/someone who lives/traveled outside US past 30 days?: No Exposure to someone with infectious disease in past 14 days?: No Do you have a fever (greater than 100.4 F or 38 C)?: No Have you tested positive for COVID-19: No Exposed to someone with COVID-19 in past 14 days?: No Do you have a sore throat?: No Do you have a cough?: No Do you have any weakness?: No Do you have any diarrhea?: No Are you experiencing any unusual bleeding?: No Do you have any muscle aches/pain?: Yes Do you have any abdominal pain?: No Are you experiencing loss of taste or smell?: No Other Medical History Have you received the Flu Vaccine for this season: Yes Have you received the Pneumonia Vaccine: No <STACY Saini - Last Filed: 06/11/24 15:57> ROS Obtained: Yes Systems reviewed as appropriate & no additional complaints except as documented Physical Exam <STACY Saini - Last Filed: 06/11/24 15:57> General General appearance: alert and in no apparent distress Respiratory Respiratory exam: Present normal lung sounds bilaterally Cardiovascular Cardiovascular exam: Present regular rate Neurological Exam Neurological exam: Present alert, oriented X3, CN II-XII intact and normal gait; Absent motor sensory deficit Medical Decision Making <STACY Saini - Last Filed: 06/11/24 15:57> Medical Records Medical records reviewed: Yes I reviewed the patient's medical records. Screening: Per USPSTF and CDC recommendations, given the prevalence of disease in our region, it is our hospital?s policy to screen for HIV and viral Hepatitis for all patients aged 18 and over and those with ongoing risk factors. Monico Inquiry Pt receiving controlled substance: No Vital Signs: 06/11/24 12:45 06/11/24 12:54 06/11/24 13:22 Temperature 99.0 F 98.5 F Temperature Source Oral Oral Pulse Rate 105 H Pulse Rate [Left Radial] 104 H 113 H Respiratory Rate 18 20 Blood Pressure 182/95 H Blood Pressure [Left Arm] 202/108 H 216/97 H Blood Pressure Mean [Left Arm] 139 136 Blood Pressure Source Blood Pressure Source [Left Arm] Blood Pressure Position 02 Sat by Pulse Oximetry 97 98 98 Oxygen Delivery Method Room Air Room Air 06/11/24 13:26 06/11/24 13:29 06/11/24 13:31 Temperature Temperature Source Pulse Rate 97 H Pulse Rate [Left Radial] 98 H Respiratory Rate 18 Blood Pressure 182/83 H Blood Pressure [Left Arm] 182/95 H Blood Pressure Mean [Left Arm] 124 Blood Pressure Source Blood Pressure Source [Left Arm] Automatic Cuff Blood Pressure Position 02 Sat by Pulse Oximetry 97 99 96 Oxygen Delivery Method Room Air Room Air 06/11/24 13:31 06/11/24 14:01 06/11/24 14:31 Temperature Temperature Source Pulse Rate 98 H 96 H 93 H Pulse Rate [Left Radial] Respiratory Rate Blood Pressure 182/83 H 171/88 H 167/81 H Blood Pressure [Left Arm] Blood Pressure Mean [Left Arm] Blood Pressure Source Automatic Cuff Blood Pressure Source [Left Arm] Blood Pressure Position Sitting 02 Sat by Pulse Oximetry 97 98 99 Oxygen Delivery Method Room Air Room Air Room Air 06/11/24 15:01 06/11/24 15:57 Temperature 98.0 F Temperature Source Oral Pulse Rate 88 95 H Pulse Rate [Left Radial] Respiratory Rate 18 Blood Pressure 174/83 H 178/88 H Blood Pressure [Left Arm] Blood Pressure Mean [Left Arm] Blood Pressure Source Automatic Cuff Blood Pressure Source [Left Arm] Blood Pressure Position Sitting 02 Sat by Pulse Oximetry 98 Oxygen Delivery Method Room Air Room Air Lab Data Lab results reviewed: Yes I reviewed the patient's lab results. Lab Results 06/11/24 13:00: Urine Color Yellow, Urine Appearance Clear, Urine pH 6.0, Ur Specific [place] >= 1.030, Urine Protein 1+ A, Urine Glucose (UA) Negative, Urine Ketones Trace, Urine Blood Trace-i, Urine Nitrate Negative, Urine Bilirubin Negative, Urine Urobilinogen 0.2, Ur Leukocyte Esterase Negative, Urine RBC 3-5, Urine WBC Occasional, Ur Squamous Epith Cells 10-20, Urine Bacteria Trace, SARS-CoV-2 (PCR) Not detected, Influenza Type A (PCR) Not detected, Influenza Type B (PCR) Not detected, RSV (PCR) Not detected, Rhinovirus (PCR) Not detected 06/11/24 13:20: WBC 11.4 H, RBC 4.41, Hgb 12.4, Hct 37.7, MCV 85.5, MCH 28.1, MCHC 32.9, RDW 14.0, Plt Count 268, MPV 8.8, Neut % (Auto) 60.2, Lymph % (Auto) 33.0, [place] % (Auto) 4.7, Eos % (Auto) 0.9, Baso % (Auto) 0.4, Neut # (Auto) 6.8, Lymph # (Auto) 3.8, [place] # (Auto) 0.5, Eos # (Auto) 0.1, Baso # (Auto) 0.1, PT 9.7, INR 0.87 L, Sodium 142, Potassium 3.7, Chloride 102, Carbon Dioxide 27, A nion Gap 16.7 H, BUN 12, Creatinine 0.60, Estimated Creat Clear 105, Estimated GFR 105, Est GFR ( Amer) 127, Glucose 99, Calcium 9.3, Magnesium 1.6, Total Bilirubin 0.3, AST 36, ALT 25, Alkaline Phosphatase 116, Total Protein 7.9, Albumin 4.5, Globulin 3.4 H, Albumin/Globulin Ratio 1.3, Procalcitonin 0.042 06/11/24 13:20 06/11/24 13:20 Orders (Tests/Meds): ED MEDICATIONS Discontinued Medications Generic Name Dose Route Start Last Admin Trade Name Westley PRN Reason Stop Dose Admin Dexamethasone Sodium Phosphate 10 mg 06/11/24 13:26 06/11/24 13:41 Dexamethasone 4mg/Ml 5ml Mdv IV 06/11/24 13:27 10 mg ONCE ONE Administration Diphenhydramine HCl 50 mg 06/11/24 13:26 06/11/24 13:42 Diphenhydramine 50mg/Ml Vial IV 06/11/24 13:27 50 mg ONCE ONE Administration Methocarbamol 500 mg 06/11/24 13:26 06/11/24 13:41 Methocarbamol 500mg Tablet PO 06/11/24 13:27 500 mg ONCE ONE Administration Ondansetron HCl 4 mg 06/11/24 13:26 06/11/24 13:42 Ondansetron 4mg/2ml Vial IV 06/11/24 13:27 4 mg ONCE ONE Administration ORDERS Category Date Time Status CT head/brain wo con Stat Cat Scan 06/11/24 13:26 Completed CBC w/Auto Diff [Complete Blood Count Auto Diff] Stat Lab 06/11/24 13:20 Completed CMP [Comprehensive Metabolic Panel] Stat Lab 06/11/24 13:20 Completed INR [Prothrombin Time INR] Stat Lab 06/11/24 13:20 Completed Magnesium Stat Lab 06/11/24 13:20 Completed Mini Respiratory Panel Stat Lab 06/11/24 13:00 Completed Procalcitonin Stat Lab 06/11/24 13:20 Completed Urinalysis and Microscopic Stat Lab 06/11/24 13:00 Completed Medical Decision Narrative: In summary patient is a 54-year-old female who presents to the emergency department for evaluation of a headache. Patient is initially hypertensive on arrival with a blood pressure of 202/108 tachycardic at 104 with sinus tachycardia on bedside monitor breathing 18 times a minute satting at 97% on room air upon arrival, with a slight temperature of 99.0. Physical exam however is remarkable only for tenderness to palpation of the musculature of the upper back and trapezius. She has no nuchal rigidity no meningeal signs. Pupils are equal round reactive to light. She has full range of motion of her neck with no neck stiffness on testing. Patient's posterior pharynx is normal and she has no cervical lymphadenopathy. Patient's breath sounds are clear and equal bilaterally to the bases.. Differential diagnosis includes skull skeletal headache versus uncontrolled hypertension versus possible stroke although less likely. Initial workup will be conducted with hematologic labs respiratory panel CT scan of the head without contrast twelve-lead EKG. Initial interventions include acetaminophen Decadron Benadryl Robaxin Zofran continuous pulse oximetry and cardiac monitoring. Initial workup reviewed by me shows her hematologic labs are nonactionable and my informal interpretation of her CT scan of the head without contrast shows no acute intracranial abnormality prior to radiology read.. Upon repeat evaluation patient had near resolution of her headache symptoms after initial intervention. Given this patient is appropriate for discharge with prescription sent for Robaxin and Zofran sent to her pharmacy and strict return precautions. <Beto Obrien MD - Last Filed: 06/13/24 15:10> Vital Signs: 06/11/24 12:45 06/11/24 12:54 06/11/24 13:22 Temperature 99.0 F 98.5 F Temperature Source Oral Oral Pulse Rate 105 H Pulse Rate [Left Radial] 104 H 113 H Respiratory Rate 18 20 Blood Pressure 182/95 H Blood Pressure [Left Arm] 202/108 H 216/97 H Blood Pressure Mean [Left Arm] 139 136 Blood Pressure Source Blood Pressure Source [Left Arm] Blood Pressure Position 02 Sat by Pulse Oximetry 97 98 98 Oxygen Delivery Method Room Air Room Air 06/11/24 13:26 06/11/24 13:29 06/11/24 13:31 Temperature Temperature Source Pulse Rate 97 H Pulse Rate [Left Radial] 98 H Respiratory Rate 18 Blood Pressure 182/83 H Blood Pressure [Left Arm] 182/95 H Blood Pressure Mean [Left Arm] 124 Blood Pressure Source Blood Pressure Source [Left Arm] Automatic Cuff Blood Pressure Position 02 Sat by Pulse Oximetry 97 99 96 Oxygen Delivery Method Room Air Room Air 06/11/24 13:31 06/11/24 14:01 06/11/24 14:31 Temperature Temperature Source Pulse Rate 98 H 96 H 93 H Pulse Rate [Left Radial] Respiratory Rate Blood Pressure 182/83 H 171/88 H 167/81 H Blood Pressure [Left Arm] Blood Pressure Mean [Left Arm] Blood Pressure Source Automatic Cuff Blood Pressure Source [Left Arm] Blood Pressure Position Sitting 02 Sat by Pulse Oximetry 97 98 99 Oxygen Delivery Method Room Air Room Air Room Air 06/11/24 15:01 06/11/24 15:57 Temperature 98.0 F Temperature Source Oral Pulse Rate 88 95 H Pulse Rate [Left Radial] Respiratory Rate 18 Blood Pressure 174/83 H 178/88 H Blood Pressure [Left Arm] Blood Pressure Mean [Left Arm] Blood Pressure Source Automatic Cuff Blood Pressure Source [Left Arm] Blood Pressure Position Sitting 02 Sat by Pulse Oximetry 98 Oxygen Delivery Method Room Air Room Air Lab Data Lab Results 06/11/24 13:00: Urine Color Yellow, Urine Appearance Clear, Urine pH 6.0, Ur Specific [place] >= 1.030, Urine Protein 1+ A, Urine Glucose (UA) Negative, Urine Ketones Trace, Urine Blood Trace-i, Urine Nitrate Negative, Urine Bilirubin Negative, Urine Urobilinogen 0.2, Ur Leukocyte Esterase Negative, Urine RBC 3-5, Urine WBC Occasional, Ur Squamous Epith Cells 10-20, Urine Bacteria Trace, SARS-CoV-2 (PCR) Not detected, Influenza Type A (PCR) Not detected, Influenza Type B (PCR) Not detected, RSV (PCR) Not detected, Rhinovirus (PCR) Not detected 06/11/24 13:20: WBC 11.4 H, RBC 4.41, Hgb 12.4, Hct 37.7, MCV 85.5, MCH 28.1, MCHC 32.9, RDW 14.0, Plt Count 268, MPV 8.8, Neut % (Auto) 60.2, Lymph % (Auto) 33.0, [place] % (Auto) 4.7, Eos % (Auto) 0.9, Baso % (Auto) 0.4, Neut # (Auto) 6.8, Lymph # (Auto) 3.8, [place] # (Auto) 0.5, Eos # (Auto) 0.1, Baso # (Auto) 0.1, PT 9.7, INR 0.87 L, Sodium 142, Potassium 3.7, Chloride 102, Carbon Dioxide 27, A nion Gap 16.7 H, BUN 12, Creatinine 0.60, Estimated Creat Clear 105, Estimated GFR 105, Est GFR ( Amer) 127, Glucose 99, Calcium 9.3, Magnesium 1.6, Total Bilirubin 0.3, AST 36, ALT 25, Alkaline Phosphatase 116, Total Protein 7.9, Albumin 4.5, Globulin 3.4 H, Albumin/Globulin Ratio 1.3, Procalcitonin 0.042 Orders (Tests/Meds): ED MEDICATIONS Discontinued Medications Generic Name Dose Route Start Last Admin Trade Name Westley PRN Reason Stop Dose Admin Dexamethasone Sodium Phosphate 10 mg 06/11/24 13:26 06/11/24 13:41 Dexamethasone 4mg/Ml 5ml Mdv IV 06/11/24 13:27 10 mg ONCE ONE Administration Diphenhydramine HCl 50 mg 06/11/24 13:26 06/11/24 13:42 Diphenhydramine 50mg/Ml Vial IV 06/11/24 13:27 50 mg ONCE ONE Administration Methocarbamol 500 mg 06/11/24 13:26 06/11/24 13:41 Methocarbamol 500mg Tablet PO 06/11/24 13:27 500 mg ONCE ONE Administration Ondansetron HCl 4 mg 06/11/24 13:26 06/11/24 13:42 Ondansetron 4mg/2ml Vial IV 06/11/24 13:27 4 mg ONCE ONE Administration ORDERS Category Date Time Status CT head/brain wo con Stat Cat Scan 06/11/24 13:26 Completed CBC w/Auto Diff [Complete Blood Count Auto Diff] Stat Lab 06/11/24 13:20 Completed CMP [Comprehensive Metabolic Panel] Stat Lab 06/11/24 13:20 Completed INR [Prothrombin Time INR] Stat Lab 06/11/24 13:20 Completed Magnesium Stat Lab 06/11/24 13:20 Completed Mini Respiratory Panel Stat Lab 06/11/24 13:00 Completed Procalcitonin Stat Lab 06/11/24 13:20 Completed Urinalysis and Microscopic Stat Lab 06/11/24 13:00 Completed ECG Data Tracing #1: I reviewed this ECG and interpreted as documented below: (Sinus tachycardia [address] or T wave changes concerning for acute ischemia. [place] 147, QRS 97, QTc 392. Normal axis) Medical Decision Narrative: In summary patient is a 54-year-old female who presents to the emergency department for evaluation of a headache. Patient is initially hypertensive on arrival with a blood pressure of 202/108 tachycardic at 104 with sinus tachycardia on bedside monitor breathing 18 times a minute satting at 97% on room air upon arrival, with a slight temperature of 99.0. Physical exam however is remarkable only for tenderness to palpation of the musculature of the upper back and trapezius. She has no nuchal rigidity no meningeal signs. Pupils are equal round reactive to light. She has full range of motion of her neck with no neck stiffness on testing. Patient's posterior pharynx is normal and she has no cervical lymphadenopathy. Patient's breath sounds are clear and equal bilaterally to the bases.. Differential diagnosis includes skull skeletal headache versus uncontrolled hypertension versus possible stroke although less likely. Initial workup will be conducted with hematologic labs respiratory panel CT scan of the head without contrast twelve-lead EKG. Initial interventions include acetaminophen Decadron Benadryl Robaxin Zofran continuous pulse oximetry and cardiac monitoring. Initial workup reviewed by me shows her hematologic labs are nonactionable and my informal interpretation of her CT scan of the head without contrast shows no acute intracranial abnormality prior to radiology read.. Upon repeat evaluation patient had near resolution of her headache symptoms after initial intervention. Given this patient is appropriate for discharge with prescription sent for Robaxin and Zofran sent to her pharmacy and strict return precautions. I was consulted by the TONYA, and we discussed the complexity of the problems being addressed. I approved the treatment and management plan for this patient's care in the Emergency Department, thus performing a substantive portion of the medical decision making. Beto Obrien MD Critical Care <STACY Saini - Last Filed: 06/11/24 15:57> Critical Care Time Critical Care Time: No
--- NOTE | 2024-06-11 13:07 | ECG_ITS ---
APPROVED REPORT Exam: Resting ECG HR:103 bpm ECG Measurements Heart Rate 103 AXES MO 147 P 57 QRSd 97 QRS 42 QT 332 T 52 QTc 392 Conclusion SINUS TACHYCARDIA ABNORMAL RHYTHM ECG UNCONFIRMED REPORT Electronically signed by : ANNETTE ARRINGTON, 06/12/2024 06:49:03
[2024-06-11 13:18] LABS: Microscopic, Urine URINE MICROSCOPIC (MICROSCOPIC)
[2024-06-11 13:20] LABS: Coronavirus 19, PCR Not Detected (NotDetected); Human Rhinovirus Not Detected (NotDetected); Influenza A, PCR Not Detected (NotDetected); Influenza B, PCR Not Detected (NotDetected); Respiratory Syncytial Virus Not Detected (NotDetected)
[2024-06-11 13:22] LABS: Appearance,Urine CLEAR (Clear); Bilirubin,Urine Negative (Negative); Blood, Urine TRACE-I (Negative); Color,Urine YELLOW (Yellow); Glucose,Urine (UA) Negative (Negative); Ketones,Urine TRACE (Negative); Leukocyte Esterase,Urine Negative (Negative); Nitrate,Urine Negative (Negative); Protein,Urine 1+ (Negative); Specific Gravity, Urine >= 1.030 (1.005-1.030); Urobilinogen,Urine 0.2 EU/dl (0.2)
--- NOTE | 2024-06-11 13:26 | CT_ITS ---
FINAL REPORT TECHNIQUE: Axial CT images were performed through the head without contrast. Sagittal and coronal reformatted images were submitted. This study was performed with techniques to keep radiation doses as low as reasonably achievable (ALARA). Individualized dose reduction techniques using automated exposure control or adjustment of mA and/or kV according to the patient's size were employed. CLINICAL HISTORY: Headache COMPARISON: None FINDINGS: Mild atrophy is noted. There is no evidence of hemorrhage. There is no mass or edema identified. There is no abnormal extra-axial fluid seen. The paranasal sinuses are well aerated. IMPRESSION: Mild atrophy without acute intracranial process. Reviewed, Interpreted and Dictated by Jovany Degroot MD Transcribed by Smita Arreola Authenticated and [facility]
[2024-06-11 13:34] LABS: Basophils # 0.1 K/mm3 (0-0.2); Basophils % 0.4 % (0.1-2.0); Eosinophils # 0.1 K/mm3 (0.0-0.4); Eosinophils % 0.9 % (0.1-12.0); Hematocrit 37.7 % (37.0-47.0); Hemoglobin 12.4 g/dL (12.2-16.2); Lymphocytes # 3.8 K/mm3 (0.7-4.5); Mean Corpuscular HGB Conc 32.9 g/dL (31.8-35.4); Mean Corpuscular Hemoglobin 28.1 pg (27.0-31.2); Mean Corpuscular Volume 85.5 fl (81-99); Mean Platelet Volume 8.8 fl (7.4-10.4); Monocytes # 0.5 K/mm3 (0.1-1.0); Monocytes % 4.7 % (1.7-9.3); Neutrophils # 6.8 K/mm3 (1.8-7.8); Neutrophils % 60.2 % (37.0-80.0); Platelet Count 268 K/mm3 (142-424); Red Blood Count 4.41 M/mm3 (4.20-5.40); White Blood Count 11.4 K/mm3 (4.8-10.8)
--- NOTE | 2024-06-11 13:36 | PC.NURSE ---
PT GONE TO CT VIA WHEELCHAIR AT THIS TIME
[2024-06-11 13:41] LABS: Alanine Aminotransferase 25 U/L (12-78); Albumin Level 4.5 g/dl (3.5-5.0); Albumin/Globulin Ratio 1.3 (1.1-1.8); Alkaline Phosphatase 116 U/L (38-126); Anion Gap 16.7 mEq/L (5-15); Aspartate Amino Transferase 36 U/L (14-36); Bilirubin,Total 0.3 mg/dl (0.2-1.3); Blood Urea Nitrogen 12 mg/dl (7-17); Calcium 9.3 mg/dl (8.4-10.2); Carbon Dioxide 27 mmol/L (22.0-30.0); Chloride 102 mmol/L (98-107); Creatinine Clearance Estimated 105 mL/min (50-200); Estimated Glomerular Filt Rate 105 ml/min (>60); GFR (African American) 127 ML/MIN (>60); Globulin 3.4 g/dL (1.3-3.2); Glucose 99 mg/dl (74-100); INR 0.87 (0.9-1.1); Magnesium 1.6 mg/dl (1.6-2.3); Potassium 3.7 mmoL/L (3.5-5.1); Prothrombin Time 9.7 seconds (9.2-12.1); Sodium 142 mmol/L (136-145); Total Protein,Serum 7.9 g/dl (6.3-8.2)
[2024-06-11] MEDS: METHOCARBAMOL 500MG TABLET 500 MG PO (13:41)
[2024-06-11] MEDS: DEXAMETHASONE 4MG/ML 5ML MDV 10 MG IV (13:41)
--- NOTE | 2024-06-11 13:41 | PC.NURSE ---
PT ARRIVED BACK TO ROOM
[2024-06-11] MEDS: ONDANSETRON 4MG/2ML VIAL 4 MG IV (13:42)
[2024-06-11] MEDS: diphenhydrAMINE 50MG/ML VIAL 50 MG IV (13:42)
[2024-06-11 13:44] LABS: Bacteria,Urine Trace /lpf; WBC,Urine Occasional #/hpf (0-3)
[2024-06-11 13:58] LABS: Procalcitonin 0.042 ng/mL (0.0-2.0)
--- NOTE | 2024-06-11 14:00 | PC.NURSE ---
Pt sitting up on side of bed. States pain is gradually improving. Declines any needs at this time
== END 2024-06-11 15:59 | disposition home or self-care (01) ==
LOC: UTC 10:57 → ER 12:48
PROVIDERS: Physician Assistant; Emergency Provider Emergency Medicine; PCP Family Medicine
DX: R51.9 Headache, unspecified (principal); M54.9 Dorsalgia, unspecified; M54.2 Cervicalgia; R00.0 Tachycardia, unspecified
CPT/HCPCS: 70450; 80053; 81001; 83735; 84145; 85025; 85610; 87631; 93005; 96374; 96375; 99284; J1100; J1200; J2405

== ENCOUNTER 2024-10-14 10:51 | Inpatient (IN) | payer BC, SELFPAY ==
[2024-10-14] VITALS (17 sets, daily range): BP systolic 118–141; BP diastolic 47–92; PULSE 83–109; RESP 14–19; TEMP 36.6–37.5; O2SAT 90–99; BMI 51.5
--- OUTSIDE RECORDS SUMMARY | 2024-10-14 11:02 | XMS_ITS | Patient Health Record ---
Author Organization [facility] Billing Info Address [address] [place] [id number] Care Team Providers Care Manager Art Name Role Phone ANGEL MADERA Primary Care Provider Unavail able HAYLEE RENEE Unavailable [phone] Allergies Allergen (clinical drug ingredient) Drug/Non Drug Allergy documented on EMR Reaction Allergy Type Onset Date Status Narcotics (uncoded) Unknown Allergy Active Steroids Unknown Drug Allergy Active Reason For Referral No Information Medications Medication SIG (Take, Route, Frequency, Duration) Notes Start Date End Date Status Telmisartan 80 MG Oral for 90 Active Amlodipine Besylate 10 MG Oral for 90 Active Propranolol HCl ER 120 MG Oral for 90 Active Sertraline HCl 50 MG Oral for 90 Active Velivet 0.1/0.125/0.15 -0.025 MG Oral for 28 Active Vitamin D (Ergocalciferol) 04973 UNIT 1 capsule Orally for 30 day(s) 12/26/2018 Not-Taking Montelukast Sodium 10 MG Oral for 90 Active Omeprazole 20 MG Oral for 90 A ctive Cetirizine HCl 10 MG 1 tablet Orally Onc e a day for 30 day(s) 12/26/2018 Active Immunizations Vaccine Route Administration Date Status Comme nts FLU (Past vaccine of unknown type) Unknown 03/03/2020 A dministered HEP A (Past vaccine of unkno wn type) Unknown 06/07/2018 Administered HEP A (Past vaccine of unkno wn type) Unknown 12/05/2018 Administered Problems Problem Type SNOMED Code ICD Code Onset Dates Problem Status W/U Status Risk Notes Problem 70639450 Hypertension (I10) Active confirmed Problem 243075451 Asthma (J45.909) Active confirmed Problem migraine (disorder) (03074670) Migraines (G43.909) Active confirmed Problem Pneumonia (571023618) Pneumonia (J18.9) Active confirmed Problem Gastroesophageal reflux disease (076946139) Reflux (K21.9) Active confirmed Problem 6657234 Arthritis (M19.90) Active confirmed Problem Fracture of multiple sites of bone (morphologic abnormality) (7142339) Fractures (T07.XXXA) Active confirmed Plan Of Treatment Pending Test Test Name Order Date LAPAROSCOPIC CHOLECYSTECTOMY (09235) Insurance Providers Payer Name Payer Address Payer Phone Subscriber Number Group Number Insured Name Patient Relationship to Insured Coverage Start Date Coverage End Date [employer] NON-HMO [address] [place], [place] [id number] KEO BUTCHER Spouse - patient is the spouse of the insured Medical (General) History Medical History History ICD Code Arthritis M19.90 Fractures T07.XXXA Hypertension I10 Reflux K21.9 Asthma J45.909 Pneumonia J18.9 Migraines G43.909 Surgical History Surgery Date(Month/Year) ex lap-endometriosis lap leslie Hospitalization History Reason Date(Month/Year) Pneumonia 2015
--- NOTE | 2024-10-14 11:08 | CT_ITS ---
PROCEDURE INFORMATION: Exam: CT Abdomen And Pelvis With Contrast Exam date and time: 10/14/2024 11:42 AM Age: 54 years old Clinical indication: Abdominal pain; Localized; Right lower quadrant (rlq); Prior surgery; Surgery date: 6+ months; Surgery type: Gb removed in 2019; Additional info: Rlq pain/ttp, guarding TECHNIQUE: Imaging protocol: Computed tomography of the abdomen and pelvis with contrast. Radiation optimization: All CT scans at this facility use at least one of these dose optimization techniques: automated exposure control; mA and/or kV adjustment per patient size (includes targeted exams where dose is matched to clinical indication); or iterative reconstruction. Contrast material: ISOVUE; Contrast volume: 75 ml; Contrast route: IV; COMPARISON: CT ABDOMEN PELVIS W CON 03/01/2020 1:43 PM FINDINGS: Liver: Fatty infiltration. No mass. Stable hepatomegaly measures 22 cm in craniocaudal dimension. Gallbladder and biliary ducts: Previous cholecystectomy. Pancreas: Normal. No ductal dilation. Spleen: Normal. No splenomegaly. Adrenal glands: Normal. No mass. Kidneys and ureters: Normal. No hydronephrosis. Stomach and bowel: Unremarkable. No obstruction. No mucosal thickening. Appendix: Appendix significantly distended to 17 mm, with wall thickening and adjacent inflammatory changes. Multiple appendicoliths noted. No evidence of perforation or drainable collection. Intraperitoneal space: Unremarkable. No free air. No significant fluid collection. Vasculature: Unremarkable. Lymph nodes: Unremarkable. No enlarged lymph nodes. Urinary bladder: Unremarkable as visualized. Reproductive: Unremarkable as visualized. Bones/joints: Unremarkable. No acute fracture. Soft tissues: Unremarkable. IMPRESSION: Acute appendicitis as detailed above.
--- NOTE | 2024-10-14 11:11 | [facility].EDGENADL ---
Discharge Plan Disposition Patient Disposition: Admitted Prescriptions Prescriptions: Continued omeprazole 20 mg capsule,delayed release(DR/EC) 20 mg PO DAILY loratadine [Allergy Relief (loratadine)] 10 mg tablet 10 mg PO DAILY diphenhydramine HCl [Allergy (diphenhydramine)] 25 mg capsule 25 mg PO HS amlodipine 10 mg tablet 10 mg PO DAILY telmisartan 80 tablet 80 mg PO DAILY sertraline 50 MG tablet 50 mg PO DAILY celecoxib 200 mg capsule 200 mg PO BID Patient Comments: TAKE 1 CAPSULE BY MOUTH TWICE DAILY desog-e.estradiol/e.estradiol [Azurette (28)] 0.15-0.02 mgx21 /0.01 mg x 5 tablet 1 tab PO DAILY Patient Comments: TAKE 1 TABLET BY MOUTH ONCE DAILY Velivet Triphasic Regimen (28) 0.1/.125/.15-25 mg-mcg tablet 1 tab PO DAILY Patient Comments: TAKE 1 TABLET BY MOUTH ONCE DAILY cyanocobalamin (vitamin B-12) 500 mcg tablet 500 mcg PO DAILY Patient Comments: TAKE 1 TABLET BY MOUTH ONCE DAILY cholecalciferol (vitamin D3) 125 mcg (5,000 unit) capsule 125 mcg PO DAILY Patient Comments: TAKE 1 CAPSULE BY MOUTH ONCE DAILY famotidine 40 MG tablet 40 mg PO DAILY Qty: 10 0RF methocarbamol 750 mg tablet 750 mg PO Q6H PRN (Reason: muscle spasm) Qty: 20 0RF ondansetron 4 mg tablet,disintegrating 4 mg PO Q6H PRN (Reason: nausea and vomiting) Qty: 10 0RF Referrals Follow up/Referrals: Pavel Kate [Primary Care Provider, Medical] - See instructions Wse Jean MD [Staff Physician, General Surgery] - See instructions Referral Note: 1 week Clinical Impressions Clinical Impression: Appendicitis, Obesity Instructions Patient Instructions: DI for Acute Abdominal Pain Print Language Print Language: Lao Discharge ED Provider: Gretta Reddy General Adult HPI General Chief complaint: Abdominal Pain Stated complaint: abd pain Time Seen by Provider: 10/14/24 11:04 Mode of Arrival: Wheelchair Source of Information: Patient Description of Symptoms (Recalled from ER Triage Doc. by RN): patient states tuesday she began having stabbing RLQ pain with nausea and freqiuent urination. no gallbladder, has appendix. History of Present Illness HPI narrative: This patient is a 54-year-old female with a history of obesity and prior cholecystectomy presenting to the emergency department for evaluation with concern for severe right lower quadrant abdominal pain that is now generalized. She notes that it started Tuesday night but has significantly worsened since then. She is not been able to eat anything since Tuesday. She notes nausea but no vomiting given that she is not eating anything. No fevers, change in bowel movements, or urinary symptoms noted. The pain is worse with any sort of movements and worse with hitting bumps on the roads on the way over here. No falls or injuries noted. Related Data Home Medications ?Medication ?Instructions ?Recorded ?Confirmed omeprazole 20 mg capsule,delayed 20 mg PO DAILY GERD 08/21/18 06/11/24 release amlodipine 10 mg tablet 10 mg PO DAILY Hypertension 11/13/18 06/11/24 sertraline 50 mg tablet 50 mg PO DAILY HEART RATE 05/25/19 06/11/24 telmisartan 80 mg tablet 80 mg PO DAILY Hypertension 05/25/19 06/11/24 diphenhydramine HCl 25 mg capsule 25 mg PO HS 06/16/20 06/11/24 (Allergy (diphenhydramine)) loratadine 10 mg tablet (Allergy 10 mg PO DAILY 06/16/20 06/11/24 Relief (loratadine)) celecoxib 200 mg capsule 200 mg PO BID 07/05/23 06/11/24 cholecalciferol (vitamin D3) 125 125 mcg PO DAILY 07/05/23 06/11/24 mcg (5,000 unit) capsule cyanocobalamin (vitamin B-12) 500 500 mcg PO DAILY 07/05/23 06/11/24 mcg tablet desogestrel-e.estradiol 0.15 1 tab PO DAILY 07/05/23 06/11/24 mg-0.02 mg(21)/e.estrad 0.01 mg(5) tablet (Azurette ()) desogestrel-ethinyl estradiol 0.1 1 tab PO DAILY 07/05/23 06/11/24 mg/0.125 mg/0.15 mg-25 mcg tablet (Velivet Triphasic Regimen (28)) Previous Rx's ?Medication ?Instructions ?Recorded famotidine 40 mg tablet 40 mg PO DAILY #10 tabs 03/01/20 methocarbamol 750 mg tablet 750 mg PO Q6H PRN muscle spasm #20 06/11/24 tabs ondansetron 4 mg disintegrating 4 mg PO Q6H PRN nausea and 06/11/24 tablet vomiting #10 tabs Allergies Allergy/AdvReac Type Severity Reaction Status Date / Time prednisone (PREDNISONE) Allergy Mild Verified 05/27/21 13:46 [facility] Disclaimer: The information contained in this section may have been updated after the patient was seen, as this information can be updated by other users. Social History Smoking Status: Never smoker alcohol intake: never substance use type: denies use current occupational status: employed Travel in the last 8 weeks?: None household members: other housing: house Have you lived/traveled outside [place] in past 30 days?: No Contact w/someone who lives/traveled outside [place] past 30 days?: No Exposure to someone with infectious disease in past 14 days?: No Do you have a fever (greater than 100.4 F or 38 C)?: No Have you tested positive for COVID-19?: No Exposed to someone with COVID-19 in past 14 days?: No Do you have a sore throat?: No Do you have a cough?: No Do you have any weakness?: No Do you have any diarrhea?: No Are you experiencing any unusual bleeding?: No Do you have any muscle aches/pain?: No Do you have any abdominal pain?: Yes Are you experiencing loss of taste or smell?: No Other Medical History Have you received the Flu Vaccine for this season: Yes Have you received the Pneumonia Vaccine: No ROS Obtained: Yes All systems reviewed & no additional complaints except as documented Physical Exam General General appearance: alert, in no apparent distress and obese Comment: Uncomfortable appearing Head Head exam: atraumatic and normocephalic Eye Eye exam: Present normal appearance, PERRL and EOMI ENT ENT exam: Present normal exam, normal oropharynx, mucous membranes moist and normal external ear exam Neck Neck exam: Present normal inspection, full ROM and trachea midline; Absent tenderness Chest Chest inspection: Present normal inspection and symmetric chest wall rise; Absent tenderness Respiratory Respiratory exam: Present normal lung sounds bilaterally; Absent respiratory distress, wheezes, stridor or accessory muscle use Cardiovascular Cardiovascular exam: Present normal rhythm and tachycardia Abdominal Exam Abdominal exam: Present tenderness, guarding and rebound; Absent distention Comment: Generalized abdominal tenderness, worse in the right lower quadrant Extremities Exam Extremities exam: Present normal inspection, full ROM and normal capillary refill; Absent tenderness or edema Back Exam Back exam: Present normal inspection and full ROM; Absent tenderness Neurological Exam Neurological exam: Present alert, oriented X3, CN II-XII intact and normal gait; Absent motor sensory deficit Psychiatric Psychiatric exam: Present normal affect and normal mood Skin Skin exam: Present warm and dry Medical Decision Making Medical Records Medical records reviewed: Yes I reviewed the patient's medical records. Screening: Per USPSTF and CDC recommendations, given the prevalence of disease in our region, it is our hospital?s policy to screen for HIV and viral Hepatitis for all patients aged 18 and over and those with ongoing risk factors. [place]ico Inquiry Pt receiving controlled substance: No Vital Signs: 10/14/24 11:01 10/14/24 11:03 10/14/24 11:30 Temperature 98 F Temperature Source Oral Pulse Rate 106 H 106 H Pulse Rate [Right Radial] 109 H Respiratory Rate 19 Blood Pressure 129/76 128/62 Blood Pressure [Right Arm] 129/76 Blood Pressure Mean [Right Arm] 93 Blood Pressure Source Blood Pressure Source [Right Arm] Automatic Cuff Blood Pressure Position Blood Pressure Position [Right Arm] Supine 02 Sat by Pulse Oximetry 98 98 95 Oxygen Delivery Method Room Air 10/14/24 12:26 10/14/24 13:56 Temperature 98.0 F Temperature Source Oral Pulse Rate 101 H 86 Pulse Rate [Right Radial] Respiratory Rate 15 Blood Pressure 126/47 L 125/85 Blood Pressure [Right Arm] Blood Pressure Mean [Right Arm] Blood Pressure Source Automatic Cuff Blood Pressure Source [Right Arm] Blood Pressure Position Sitting Blood Pressure Position [Right Arm] 02 Sat by Pulse Oximetry 96 Oxygen Delivery Method Room Air Room Air Lab Data Lab results reviewed: Yes I reviewed the patient's lab results. Lab Results 10/14/24 11:00: Urine Color Yellow, Urine Appearance Clear, Urine pH 6.0, Ur Specific Crooks 1.020, Urine Protein 2+ A, Urine Glucose (UA) Negative, Urine Ketones Negative, Urine Blood 1+ A, Urine Nitrate Negative, Urine Bilirubin Negative, Urine Urobilinogen 1.0, Ur Leukocyte Esterase Negative, Urine RBC Occasional, Urine WBC 5-10, Ur Squamous Epith Cells 20-50, Urine Bacteria Trace 10/14/24 11:18: WBC 16.6 H, RBC 3.94 L, Hgb 11.6 L, Hct 35.3 L, MCV 89.6, MCH 29.4, MCHC 32.9, RDW 14.0, Plt Count 230, MPV 8.9, Neut % (Auto) 79.1, Lymph % (Auto) 14.2, Donley % (Auto) 5.4, Eos % (Auto) 0.5, Baso % (Auto) 0.2, Neut # (Auto) 13.1 H, Lymph # (Auto) 2.4, Donley # (Auto) 0.9, Eos # (Auto) 0.1, Baso # (Auto) 0.0, Sodium 138, Potassium 3.7, Chloride 102, Carbon Dioxide 31 H, Anion Gap 8.7, BUN 12, Creatinine 0.70, Estimated Creat Clear 80, Estimated GFR 88, Est GFR ( Amer) 106, Glucose 128 H, Lactate 1.2, Calcium 9.0, Total Bilirubin 1.3, AST 27, ALT 28, Alkaline Phosphatase 102, Total Protein 7.8, Albumin 4.0, Globulin 3.8 H, Albumin/Globulin Ratio 1.1, Lipase 52, HCV Ab TITO w/Rflx PCR Qn Negative, HIV Ag/Ab Combo Qual Negative 10/14/24 11:18 10/14/24 11:18 Orders (Tests/Meds): ED MEDICATIONS Discontinued Medications Generic Name Dose Route Start Last Admin Trade Name Freq PRN Reason Stop Dose Admin Acetaminophen 1,000 mg 10/14/24 11:08 10/14/24 11:17 Acetaminophen 1,000mg/100ml Vial IV 10/14/24 11:09 1,000 mg ONCE ONE Administration Lactated Ringer's 1,000 mls @ 999 mls/hr 10/14/24 11:08 10/14/24 11:17 Lactated Ringer's 1000 Ml Bag IV 10/14/24 12:08 999 mls/hr .Q1H1M ONE Administration Piperacillin Sod/Tazobactam 50 mls @ 100 mls/hr 10/14/24 12:34 10/14/24 12:55 Sod 3.375 gm/ Sodium Chloride IV 10/14/24 13:03 100 mls/hr ONCE ONE Administration Lactated Ringer's 1,000 mls @ 125 mls/hr 10/14/24 12:45 Lactated Ringer's 1000 Ml Bag IV 11/13/24 12:44 .Q8H MINNA Sodium Chloride 1,000 mls @ 25 mls/hr 10/14/24 13:26 Sod Chlor 0.9% 1000ml Bag IV 10/15/24 14:25 .Q25H ONE Iopamidol 160 ml 10/14/24 11:57 10/14/24 11:58 Iopamidol-370 (76%);100ml Bottle IV 10/14/24 11:58 160 ml ONCE ONE Administration Ketorolac Tromethamine 15 mg 10/14/24 11:08 10/14/24 11:17 Ketorolac 30mg/Ml Vial IV 10/14/24 11:09 15 mg ONCE ONE Administration Morphine Sulfate 4 mg 10/14/24 11:08 10/14/24 11:18 Morphine 4mg/Ml Syringe IV 10/14/24 11:09 4 mg ONCE ONE Administration Ondansetron HCl 4 mg 10/14/24 11:08 10/14/24 11:18 Ondansetron 4mg/2ml Vial IV 10/14/24 11:09 4 mg ONCE ONE Administration Sodium Chloride 10 ml 10/14/24 11:57 10/14/24 11:58 Sodium Chloride 0.9% 10ml Syr (Rad Only) IV 11/13/24 11:56 10 ml NEEDED PRN Administration Maintain IV Site ORDERS Category Date Time Status CT abdomen pelvis w con Stat Cat Scan 10/14/24 11:08 Completed General Surgery Consult [Consult to General Surgery] [ Cons 10/14/24 12:34 Ordered CONS] Stat Complete Blood Count Auto Diff Stat Lab 10/14/24 11:18 Completed Comprehensive Metabolic Panel Stat Lab 10/14/24 11:18 Completed HIV Combo Stat Lab 10/14/24 11:18 Completed Hepatitis C Ab Qual. W/ RFX Stat Lab 10/14/24 11:18 Completed Lactic Acid Stat Lab 10/14/24 11:18 Completed Lipase Stat Lab 10/14/24 11:18 Completed UA [Urinalysis and Microscopic] Stat Lab 10/14/24 11:00 Completed Blood Culture Stat Micro 10/14/24 12:50 Received Medical Decision Narrative: In summary, this patient is a 54-year-old female presenting to the Emergency Department for evaluation of right lower quadrant tenderness to palpation, nausea, anorexia for 3 days. Differential diagnoses considered include but are not limited to appendicitis, colitis, peritonitis, ovarian cyst, ovarian torsion, cystitis, pyelonephritis, ureterolithiasis. Ruling out the most morbid conditions drove assessment. It should be noted patient's history includes obesity which is not at goal therapy. This complicates all aspects of care by increasing patient's risk for morbidity. On exam, the patient is uncomfortable appearing. She is tachycardic but otherwise vitals are normal on cardiac telemetry. She is nontoxic-appearing. She has generalized abdominal tenderness with guarding, worse in the right lower quadrant. Workup included CBC, CMP, lipase, lactic acid, urinalysis, CT abdomen pelvis with IV contrast. She is given a bolus of fluids as well as IV Toradol, acetaminophen, Zofran, and morphine for symptomatic improvement. I independently interpreted CT scan prior to the radiologist read and noted acute appendicitis. Please see their read for final interpretation. Labs were obtained that demonstrated leukocytosis with neutrophilic predominance. Chemistry is reassuring with no significant DAVE, no elevation liver enzymes, and a normal lipase. Urinalysis is grossly contaminated with squamous cells but is not overly concerning for infection. Given acute appendicitis, I gave the patient IV Zosyn and reached out to the general surgeon on-call, Dr. Jean. He took the patient to the OR in stable condition. Critical Care Critical Care Time Critical Care Time: No
[2024-10-14] MEDS: KETOROLAC 30MG/ML VIAL 15 MG IV (11:17)
[2024-10-14] MEDS: LACTATED RINGERS 1000ML 1,000 ML 999 ML IV (11:17)
[2024-10-14] MEDS: ACETAMINOPHEN 1,000MG/100ML VIAL 1000 MG IV (11:17)
[2024-10-14] MEDS: MORPHINE 4MG/ML SYRINGE 4 MG IV (11:18)
[2024-10-14] MEDS: ONDANSETRON 4MG/2ML VIAL 4 MG IV ×2 (11:18→18:08)
[2024-10-14 11:21] LABS: Microscopic, Urine URINE MICROSCOPIC (MICROSCOPIC)
[2024-10-14 11:26] LABS: Appearance,Urine CLEAR (Clear); Blood, Urine 1+ (Negative); Color,Urine YELLOW (Yellow); Glucose,Urine (UA) Negative (Negative); Ketones,Urine Negative (Negative); Leukocyte Esterase,Urine Negative (Negative); Nitrate,Urine Negative (Negative); Protein,Urine 2+ (Negative)
[2024-10-14 11:28] LABS: Basophils % 0.2 % (0.1-2.0); Eosinophils # 0.1 Kmm3 (0.0-0.4); Eosinophils % 0.5 % (0.1-12.0); Hematocrit 35.3 % (37.0-47.0); Hemoglobin 11.6 g/dL (12.2-16.2); Immature Granulocytes % 0.6 %; Lymphocytes # 2.4 K/mm3 (0.7-4.5); Lymphocytes % 14.2 % (10-50); Mean Corpuscular HGB Conc 32.9 g/dL (31.8-35.4); Mean Corpuscular Hemoglobin 29.4 pg (27.0-31.2); Mean Corpuscular Volume 89.6 fl (81-99); Mean Platelet Volume 8.9 fl (7.4-10.4); Monocytes # 0.9 K/mm3 (0.1-1.0); Monocytes % 5.4 % (1.7-9.3); Neutrophils # 13.1 K/mm3 (1.8-7.8); Neutrophils % 79.1 % (37.0-80.0); Nucleated Red Blood Cells # 0 10^3/uL; Nucleated Red Blood Cells % 0 %; Platelet Count 230 K/mm3 (142-424); Red Blood Count 3.94 M/mm3 (4.20-5.40); Red Cell Distribution Width-SD 45.7 fL; White Blood Count 16.6 K/mm3 (4.8-10.8)
[2024-10-14 11:32] LABS: Bilirubin,Urine Negative (Negative)
[2024-10-14 11:42] LABS: Lactic Acid 1.2 mmol/L (0.7-2.1)
[2024-10-14 11:43] LABS: Alanine Aminotransferase 28 U/L (12-78); Albumin/Globulin Ratio 1.1 (1.1-1.8); Alkaline Phosphatase 102 U/L (38-126); Aspartate Amino Transferase 27 U/L (14-36); Bilirubin,Total 1.3 mg/dl (0.2-1.3); Blood Urea Nitrogen 12 mg/dl (7-17); Carbon Dioxide 31 mmol/L (22.0-30.0); Chloride 102 mmol/L (98-107); Creatinine Clearance Estimated 80 mL/min (50-200); Estimated Glomerular Filt Rate 88 ml/min (>60); GFR (African American) 106 ML/MIN (>60); Globulin 3.8 g/dL (1.3-3.2); Glucose 128 mg/dl (74-100); Lipase 52 U/L (23-300); Potassium 3.7 mmoL/L (3.5-5.1); Total Protein,Serum 7.8 g/dl (6.3-8.2)
[2024-10-14] MEDS: SODIUM CHLORIDE 0.9% 10ML SYR (RAD ONLY) 10 ML IV (11:58)
[2024-10-14] MEDS: IOPAMIDOL-370 (76%);100ML BOTTLE 160 ML IV (11:58)
[2024-10-14 12:10] LABS: Anion Gap 8.7 mEq/L (5-15); Sodium 138 mmol/L (136-145)
[2024-10-14 12:13] LABS: Bacteria,Urine Trace /lpf; RBC,Urine Occasional #/hpf (0-3); Squamous Epithelial Cell,Urine 20-50 #/hpf (0-5)
--- NOTE | 2024-10-14 12:32 | PC.NURSE ---
Registration is paging for a surgery consult
--- NOTE | 2024-10-14 12:37 | PC.NURSE ---
assisted patient to bathroom at this time.
--- NOTE | 2024-10-14 12:45 | PC.NURSE ---
MD on phone with surgeon.
--- NOTE | 2024-10-14 12:48 | PC.NURSE ---
I notified HS that told to call in the surgery team.
[2024-10-14 12:53] LABS: HIV Combo NEGATIVE (Negative)
[2024-10-14] MEDS: PIPERACILLIN/TAZO 3.375 GM in 0.9 % SODIUM CHLORIDE 50 ML IV (12:55)
[2024-10-14 13:01] LABS: Hepatitis C Ab Qual. W/ RFX NEGATIVE (Negative)
--- NOTE | 2024-10-14 13:20 | EXP.GEN.HP ---
HPI HPI HPI: This is a 54-year-old female who presents the emergency department with increasing abdominal pain. Radiographic evidence consistent with appendicitis noted per CT scan. Leukocytosis also confirmed. Forwarded from emergency department evaluation: This patient is a 54-year-old female with a history of obesity and prior cholecystectomy presenting to the emergency department for evaluation with concern for severe right lower quadrant abdominal pain that is now generalized. She notes that it started Tuesday night but has significantly worsened since then. She is not been able to eat anything since Tuesday. She notes nausea but no vomiting given that she is not eating anything. No fevers, change in bowel movements, or urinary symptoms noted. The pain is worse with any sort of movements and worse with hitting bumps on the roads on the way over here. No falls or injuries noted. Medical Decision Narrative: In summary, this patient is a 54-year-old female presenting to the Emergency Department for evaluation of right lower quadrant tenderness to palpation, nausea, anorexia for 3 days. Differential diagnoses considered include but are not limited to appendicitis, colitis, peritonitis, ovarian cyst, ovarian torsion, cystitis, pyelonephritis, ureterolithiasis. Ruling out the most morbid conditions drove assessment. It should be noted patient's history includes obesity which is not at goal therapy. This complicates all aspects of care by increasing patient's risk for morbidity. On exam, the patient is uncomfortable appearing. She is tachycardic but otherwise vitals are normal on cardiac telemetry. She is nontoxic-appearing. She has generalized abdominal tenderness with guarding, worse in the right lower quadrant. Workup included CBC, CMP, lipase, lactic acid, urinalysis, CT abdomen pelvis with IV contrast. She is given a bolus of fluids as well as IV Toradol, acetaminophen, Zofran, and morphine for symptomatic improvement. [facility] Disclaimer: The information contained in this section may have been updated after the patient was seen, as this information can be updated by other users. Social History Smoking Status: Never smoker alcohol intake: never substance use type: denies use current occupational status: employed Travel in the last 8 weeks?: None household members: other housing: house Have you lived/traveled outside US in past 30 days?: No Contact w/someone who lives/traveled outside US past 30 days?: No Exposure to someone with infectious disease in past 14 days?: No Do you have a fever (greater than 100.4 F or 38 C)?: No Have you tested positive for COVID-19?: No Exposed to someone with COVID-19 in past 14 days?: No Do you have a sore throat?: No Do you have a cough?: No Do you have any weakness?: No Do you have any diarrhea?: No Are you experiencing any unusual bleeding?: No Do you have any muscle aches/pain?: No Do you have any abdominal pain?: Yes Are you experiencing loss of taste or smell?: No Other Medical History Have you received the Flu Vaccine for this season: Yes Have you received the Pneumonia Vaccine: No Meds Home Medications and Allergies Home Medications ?Medication ?Instructions ?Recorded ?Confirmed ?Type omeprazole 20 mg capsule,delayed 20 mg PO DAILY GERD 08/21/18 06/11/24 History release amlodipine 10 mg tablet 10 mg PO DAILY Hypertension 11/13/18 06/11/24 History sertraline 50 mg tablet 50 mg PO DAILY HEART RATE 05/25/19 06/11/24 History telmisartan 80 mg tablet 80 mg PO DAILY Hypertension 05/25/19 06/11/24 History famotidine 40 mg tablet 40 mg PO DAILY #10 tabs 03/01/20 06/11/24 Rx diphenhydramine HCl 25 mg capsule 25 mg PO HS 06/16/20 06/11/24 History (Allergy (diphenhydramine)) loratadine 10 mg tablet (Allergy 10 mg PO DAILY 06/16/20 06/11/24 History Relief (loratadine)) celecoxib 200 mg capsule 200 mg PO BID 07/05/23 06/11/24 History cholecalciferol (vitamin D3) 125 125 mcg PO DAILY 07/05/23 06/11/24 History mcg (5,000 unit) capsule cyanocobalamin (vitamin B-12) 500 500 mcg PO DAILY 07/05/23 06/11/24 History mcg tablet desogestrel-e.estradiol 0.15 1 tab PO DAILY 07/05/23 06/11/24 History mg-0.02 mg(21)/e.estrad 0.01 mg(5) tablet (Azurette (28)) desogestrel-ethinyl estradiol 0.1 1 tab PO DAILY 07/05/23 06/11/24 History mg/0.125 mg/0.15 mg-25 mcg tablet (Velivet Triphasic Regimen (28)) methocarbamol 750 mg tablet 750 mg PO Q6H PRN muscle spasm #20 06/11/24 Rx tabs ondansetron 4 mg disintegrating 4 mg PO Q6H PRN nausea and 06/11/24 Rx tablet vomiting #10 tabs New Prescriptions to Start Prescriptions: Allergies Allergy/AdvReac Type Severity Reaction Status Date / Time prednisone (PREDNISONE) Allergy Mild Verified 05/27/21 13:46 Exam Data for Last 24 hours Vital signs and Labs for Last 24 Hours: Temp Pulse Resp BP Pulse Ox O2 Del Method 98 F 101 H 19 126/47 L 96 Room Air 10/14/24 11:03 10/14/24 12:26 10/14/24 11:03 10/14/24 12:26 10/14/24 12:26 10/14/24 12:26 Laboratory Results - last 24 hr 10/14/24 11:00: Urine Color Yellow, Urine Appearance Clear, Urine pH 6.0, Ur Specific [place] 1.020, Urine Protein 2+ A, Urine Glucose (UA) Negative, Urine Ketones Negative, Urine Blood 1+ A, Urine Nitrate Negative, Urine Bilirubin Negative, Urine Urobilinogen 1.0, Ur Leukocyte Esterase Negative, Urine RBC Occasional, Urine WBC 5-10, Ur Squamous Epith Cells 20-50, Urine Bacteria Trace 10/14/24 11:18: WBC 16.6 H, RBC 3.94 L, Hgb 11.6 L, Hct 35.3 L, MCV 89.6, MCH 29.4, MCHC 32.9, RDW 14.0, Plt Count 230, MPV 8.9, Neut % (Auto) 79.1, Lymph % (Auto) 14.2, [place] % (Auto) 5.4, Eos % (Auto) 0.5, Baso % (Auto) 0.2, Neut # (Auto) 13.1 H, Lymph # (Auto) 2.4, [place] # (Auto) 0.9, Eos # (Auto) 0.1, Baso # (Auto) 0.0, Sodium 138, Potassium 3.7, Chloride 102, Carbon Dioxide 31 H, Anion Gap 8.7, BUN 12, Creatinine 0.70, Estimated Creat Clear 80, Estimated GFR 88, Est GFR ( Amer) 106, Glucose 128 H, Lactate 1.2, Calcium 9.0, Total Bilirubin 1.3, AST 27, ALT 28, Alkaline Phosphatase 102, Total Protein 7.8, Albumin 4.0, Globulin 3.8 H, Albumin/Globulin Ratio 1.1, Lipase 52, HCV Ab TITO w/Rflx PCR Qn Negative, HIV Ag/Ab Combo Qual Negative I & O for Last 24 hours: Intake & Output 10/12/24 10/13/24 10/14/24 10/15/24 11:59 11:59 11:59 11:59 Weight 300 lb Constitutional Constitutional: no acute distress *Routine HEENT Exam Head: Present normocephalic Eye: Present EOMI ENT: Present mucous membranes moist *Routine Neck Exam Neck: Present full ROM *Routine Respiratory Exam Respiratory: Absent respiratory distress *Routine Cardiovascular Exam Cardiovascular: Present tachycardia (Mildly tachycardic) *Routine Abdominal Exam Abdominal: Present obese *Routine Rectal Exam Rectal:: deferred *Routine Genitalia Exam Genitalia:: deferred *Routine Extremities Exam Extremities: Present full ROM *Routine Skin Exam Skin: Absent erythema *Routine Neurological Exam Neurological: Present alert Results Results Lab Results Last 24 Hours:: Laboratory Results - last 24 hr 10/14/24 11:00: Urine Color Yellow, Urine Appearance Clear, Urine pH 6.0, Ur Specific [place] 1.020, Urine Protein 2+ A, Urine Glucose (UA) Negative, Urine Ketones Negative, Urine Blood 1+ A, Urine Nitrate Negative, Urine Bilirubin Negative, Urine Urobilinogen 1.0, Ur Leukocyte Esterase Negative, Urine RBC Occasional, Urine WBC 5-10, Ur Squamous Epith Cells 20-50, Urine Bacteria Trace 10/14/24 11:18: WBC 16.6 H, RBC 3.94 L, Hgb 11.6 L, Hct 35.3 L, MCV 89.6, MCH 29.4, MCHC 32.9, RDW 14.0, Plt Count 230, MPV 8.9, Neut % (Auto) 79.1, Lymph % (Auto) 14.2, [place] % (Auto) 5.4, Eos % (Auto) 0.5, Baso % (Auto) 0.2, Neut # (Auto) 13.1 H, Lymph # (Auto) 2.4, [place] # (Auto) 0.9, Eos # (Auto) 0.1, Baso # (Auto) 0.0, Sodium 138, Potassium 3.7, Chloride 102, Carbon Dioxide 31 H, Anion Gap 8.7, BUN 12, Creatinine 0.70, Estimated Creat Clear 80, Estimated GFR 88, Est GFR ( Amer) 106, Glucose 128 H, Lactate 1.2, Calcium 9.0, Total Bilirubin 1.3, AST 27, ALT 28, Alkaline Phosphatase 102, Total Protein 7.8, Albumin 4.0, Globulin 3.8 H, Albumin/Globulin Ratio 1.1, Lipase 52, HCV Ab TITO w/Rflx PCR Qn Negative, HIV Ag/Ab Combo Qual Negative CT scan - abdomen: report reviewed and image reviewed CT scan - pelvis: report reviewed and image reviewed Assessment and Plan *Assessment and plan (1) Appendicitis: Status: Acute Qualifiers: Appendicitis type: acute appendicitis Acute appendicitis type: with localized peritonitis Appendicitis gangrene presence: without gangrene Appendicitis perforation presence: without perforation Appendicitis abscess presence: without abscess Qualified Code(s): K35.30 - Acute appendicitis with localized peritonitis, without perforation or gangrene Category: Medical Code(s): K37 - Unspecified appendicitis Plan: Laparoscopic appendectomy I have discussed the risks and benefits including, but not limited to: Bleeding Infection Damage to surrounding tissue Inherent risks of sedation The patient agrees to proceed. (2) Adult BMI 50.0-59.9 kg/sq m: Status: Acute Category: Medical Code(s): Z68.43 - Body mass index [BMI] 50.0-59.9, adult
[2024-10-14] MEDS: SODIUM CHLORIDE IRRIG SOLUTION 3,000 ML 50 ML IR (15:18)
--- NOTE | 2024-10-14 15:49 | EXP.OP.NOTE ---
Date of procedure: 10/14/24 Pre-op Diagnosis:: Appendicitis Post-op Diagnosis:: Necrotic/suppurative appendicitis with surrounding purulence (microperforation) Procedure performed:: Laparoscopic appendectomy Surgeon:: Wes Jean MD Anesthesia: BENY Estimated blood loss (mL): 15 Operative findings:: Appendix necrotic Suppurative changes and purulent fluid surrounding appendix (consistent with microperforation) Base of appendix appeared viable Operative note:: After informed consent was obtained the patient was taken to the operating room and placed in the supine position. General anesthesia was induced and her abdomen was prepped and draped in a sterile fashion. After infiltration with local anesthetic a supraumbilical incision was made. A Veress needle was placed in position. The abdomen was insufflated. A 12 mm optical trocar was placed in position. Under direct visualization a 5 mm trocar was placed in the suprapubic position and an additional 5 mm trocar was placed in the left lower quadrant. The appendix was found to be densely adhered to the right lateral sidewall with posterior protrusion. Apparent full-thickness necrosis of the entire appendix was confirmed. Severe suppurative changes and purulent fluid were found to be surrounding the appendix. Elevation of the appendix was difficult secondary to location and adhesions. The mesoappendix was carefully taken with harmonic ronel. Once the appendix was freed from surrounding tissue, improved visualization of the base was possible. The base appeared to be viable and the decision was made to proceed with stapled transection. An Endopath 45 stapling device was utilized to transect the appendix. The appendix was then placed in a retrieval bag and removed through the supraumbilical trocar site. The right lower quadrant was thoroughly irrigated. No active bleeding or sign of injury was noted. Fascia at the supraumbilical trocar site was reapproximated utilizing the Neoclose device. The remaining trocars were removed. All wounds were irrigated and skin was reapproximated with interrupted 4-0 Monocryl in a subcuticular fashion. Steri-Strips were applied and the patient was transferred to recovery in stable condition. Condition: stable Disposition: PACU Specimens:: Appendix Complications:: No immediate
--- NOTE | 2024-10-14 16:05 | P.PNANES_ITS ---
[facility] Disclaimer: The information contained in this section may have been updated after the patient was seen, as this information can be updated by other users. Social History Smoking Status: Never smoker alcohol intake: never substance use type: denies use current occupational status: employed Travel in the last 8 weeks?: None household members: other housing: house Have you lived/traveled outside US in past 30 days?: No Contact w/someone who lives/traveled outside US past 30 days?: No Exposure to someone with infectious disease in past 14 days?: No Do you have a fever (greater than 100.4 F or 38 C)?: No Have you tested positive for COVID-19?: No Exposed to someone with COVID-19 in past 14 days?: No Do you have a sore throat?: No Do you have a cough?: No Do you have any weakness?: No Do you have any diarrhea?: No Are you experiencing any unusual bleeding?: No Do you have any muscle aches/pain?: No Do you have any abdominal pain?: Yes Are you experiencing loss of taste or smell?: No [facility] Anesthesia Checklist Patient Identification Patient Identification: Arm Band and Verbal (Name & ) Structural Data Admitted From: Emergency Dept Planned Operative Procedure/s: lap appy Consent for Planned Operative Procedure(s) Verified: Yes Verified Documents: Surgical Consent and History and Physical NPO Status Verified Time NPO: 00:00 Additional verifications Anesthesia Reactions: No Airway Assessment Mallampati Score:: Class II Dentition: Poor Dentition Neurological Assessment Level of Consciousness: Awake, Alert and Appropriate Hx Seizures: No Numbness or tingling in extremities: No Anesthesia Plan Anesthesia Risk discussed: Yes Anesthesia Plan: Verified ASA Class: II Anesthesia Type: General
--- NOTE | 2024-10-14 16:07 | P.PNANES_ITS ---
[facility] Anesthesia Record Part I Anesthesia Record I Intake, IV Amount: 1,200 Hydration: Adequate Estimated blood loss (mL): 10 Urine output (mL): 100 Blood Pressure: 118/72 SaO2: 94 Pulse Rate: 86 Airway Patency: Patent Respiratory Rate: 18 Temperature: 99.5 F Patient is:: Awake, Drowsy, Nasal O2 and Stable Stable to PACU at:: 16:10
[2024-10-14 16:48] LABS: Microscopic, Urine URINE MICROSCOPIC (MICROSCOPIC)
--- NOTE | 2024-10-14 16:48 | PC.NURSE ---
arrived from surgery at 16:31
[2024-10-14 16:50] LABS: Appearance,Urine CLEAR (Clear); Bilirubin,Urine Negative (Negative); Blood, Urine TRACE-I (Negative); Color,Urine YELLOW (Yellow); Glucose,Urine (UA) Negative (Negative); Ketones,Urine Negative (Negative); Leukocyte Esterase,Urine Negative (Negative); Nitrate,Urine Negative (Negative); Protein,Urine TRACE (Negative); Specific Gravity, Urine <= 1.005 (1.005-1.030)
[2024-10-14 17:01] LABS: RBC,Urine Occasional #/hpf (0-3); Squamous Epithelial Cell,Urine Occasional #/hpf (0-5)
[2024-10-14] MEDS: LACTATED RINGERS 1000ML 1,000 ML 100 ML IV (17:58)
[2024-10-14] MEDS: PIPERACILLIN/TAZO 4.5 GM in 0.9 % SODIUM CHLORIDE 100 ML IV ×2 (17:58→21:45)
[2024-10-14] MEDS: HYDROCODONE/APAP 5/325 MG TABLET 1 TAB PO ×2 (18:07→21:45)
--- NOTE | 2024-10-14 18:17 | PC.NURSE ---
pt resting supine in bed. a&ox4. post op vitals stable. 3 lap sites to abdomen w/ dressings c/d/i. pain medication and abx given per jul. LR infusing @100. no needs at this time. call light within reach
--- NOTE | 2024-10-14 22:42 | EXP.HP ---
History of Present Illness *Admission Date: 10/14/24 *Reason for visit:: Abdominal pain *History of present illness: This is a 54-year-old female who presents the emergency department with increasing abdominal pain. Radiographic evidence consistent with appendicitis noted per CT scan. Leukocytosis also confirmed. Forwarded from emergency department evaluation: This patient is a 54-year-old female with a history of obesity and prior cholecystectomy presenting to the emergency department for evaluation with concern for severe right lower quadrant abdominal pain that is now generalized. She notes that it started Tuesday night but has significantly worsened since then. She is not been able to eat anything since Tuesday. She notes nausea but no vomiting given that she is not eating anything. No fevers, change in bowel movements, or urinary symptoms noted. The pain is worse with any sort of movements and worse with hitting bumps on the roads on the way over here. No falls or injuries noted. Medical Decision Narrative: In summary, this patient is a 54-year-old female presenting to the Emergency Department for evaluation of right lower quadrant tenderness to palpation, nausea, anorexia for 3 days. Differential diagnoses considered include but are not limited to appendicitis, colitis, peritonitis, ovarian cyst, ovarian torsion, cystitis, pyelonephritis, ureterolithiasis. Ruling out the most morbid conditions drove assessment. It should be noted patient's history includes obesity which is not at goal therapy. This complicates all aspects of care by increasing patient's risk for morbidity. On exam, the patient is uncomfortable appearing. She is tachycardic but otherwise vitals are normal on cardiac telemetry. She is nontoxic-appearing. She has generalized abdominal tenderness with guarding, worse in the right lower quadrant. Workup included CBC, CMP, lipase, lactic acid, urinalysis, CT abdomen pelvis with IV contrast. She is given a bolus of fluids as well as IV Toradol, acetaminophen, Zofran, and morphine for symptomatic improvement. [facility]SH [facility] Disclaimer: The information contained in this section may have been updated after the patient was seen, as this information can be updated by other users. Social History Smoking Status: Never smoker alcohol intake: never substance use type: denies use current occupational status: employed Travel in the last 8 weeks?: None household members: other housing: house Have you lived/traveled outside US in past 30 days?: No Contact w/someone who lives/traveled outside US past 30 days?: No Exposure to someone with infectious disease in past 14 days?: No Do you have a fever (greater than 100.4 F or 38 C)?: No Have you tested positive for COVID-19?: No Exposed to someone with COVID-19 in past 14 days?: No Do you have a sore throat?: No Do you have a cough?: No Do you have any weakness?: No Do you have any diarrhea?: No Are you experiencing any unusual bleeding?: No Do you have any muscle aches/pain?: No Do you have any abdominal pain?: Yes Are you experiencing loss of taste or smell?: No Other Medical History Have you received the Flu Vaccine for this season: Yes Have you received the Pneumonia Vaccine: No Meds Home Medications and Allergies Home Medications ?Medication ?Instructions ?Recorded ?Confirmed ?Type omeprazole 20 mg capsule,delayed 20 mg PO DAILY GERD 08/21/18 10/14/24 History release amlodipine 10 mg tablet 10 mg PO DAILY Hypertension 11/13/18 10/14/24 History sertraline 50 mg tablet 50 mg PO DAILY HEART RATE 05/25/19 10/14/24 History telmisartan 80 mg tablet 80 mg PO DAILY Hypertension 05/25/19 10/14/24 History famotidine 40 mg tablet 40 mg PO DAILY #10 tabs 03/01/20 10/14/24 Rx diphenhydramine HCl 25 mg capsule 25 mg PO HS 06/16/20 10/14/24 History (Allergy (diphenhydramine)) loratadine 10 mg tablet (Allergy 10 mg PO DAILY 06/16/20 10/14/24 History Relief (loratadine)) celecoxib 200 mg capsule 200 mg PO BID 07/05/23 10/14/24 History cholecalciferol (vitamin D3) 125 125 mcg PO DAILY 07/05/23 10/14/24 History mcg (5,000 unit) capsule cyanocobalamin (vitamin B-12) 500 500 mcg PO DAILY 07/05/23 10/14/24 History mcg tablet methocarbamol 750 mg tablet 750 mg PO Q6H PRN muscle spasm #20 06/11/24 10/14/24 Rx tabs ondansetron 4 mg disintegrating 4 mg PO Q6H PRN nausea and 06/11/24 10/14/24 Rx tablet vomiting #10 tabs New Prescriptions to Start Prescriptions: Allergies Allergy/AdvReac Type Severity Reaction Status Date / Time prednisone (PREDNISONE) Allergy Mild Verified 05/27/21 13:46 Exam Data for Last 24 hours Vital signs and Labs for Last 24 Hours: Temp Pulse Resp BP Pulse Ox O2 Del Method O2 Flow Rate 98.5 F 83 16 129/86 90 L Room Air 2 10/14/24 16:30 10/14/24 18:45 10/14/24 18:45 10/14/24 18:45 10/14/24 18:45 10/14/24 21:00 10/14/24 16:10 Laboratory Results - last 24 hr 10/14/24 11:00: Urine Color Yellow, Urine Appearance Clear, Urine pH 6.0, Ur Specific [place] 1.020, Urine Protein 2+ A, Urine Glucose (UA) Negative, Urine Ketones Negative, Urine Blood 1+ A, Urine Nitrate Negative, Urine Bilirubin Negative, Urine Urobilinogen 1.0, Ur Leukocyte Esterase Negative, Urine RBC Occasional, Urine WBC 5-10, Ur Squamous Epith Cells 20-50, Urine Bacteria Trace 10/14/24 11:18: WBC 16.6 H, RBC 3.94 L, Hgb 11.6 L, Hct 35.3 L, MCV 89.6, MCH 29.4, MCHC 32.9, RDW 14.0, Plt Count 230, MPV 8.9, Neut % (Auto) 79.1, Lymph % (Auto) 14.2, [place] % (Auto) 5.4, Eos % (Auto) 0.5, Baso % (Auto) 0.2, Neut # (Auto) 13.1 H, Lymph # (Auto) 2.4, [place] # (Auto) 0.9, Eos # (Auto) 0.1, Baso # (Auto) 0.0, Sodium 138, Potassium 3.7, Chloride 102, Carbon Dioxide 31 H, Anion Gap 8.7, BUN 12, Creatinine 0.70, Estimated Creat Clear 80, Estimated GFR 88, Est GFR ( Amer) 106, Glucose 128 H, Lactate 1.2, Calcium 9.0, Total Bilirubin 1.3, AST 27, ALT 28, Alkaline Phosphatase 102, Total Protein 7.8, Albumin 4.0, Globulin 3.8 H, Albumin/Globulin Ratio 1.1, Lipase 52, HCV Ab TITO w/Rflx PCR Qn Negative, HIV Ag/Ab Combo Qual Negative 10/14/24 13:15: Urine Color Yellow, Urine Appearance Clear, Urine pH 5.0, Ur Specific [place] <= 1.005, Urine Protein Trace, Urine Glucose (UA) Negative, Urine Ketones Negative, Urine Blood Trace-i, Urine Nitrate Negative, Urine Bilirubin Negative, Urine Urobilinogen 1.0, Ur Leukocyte Esterase Negative, Urine RBC Occasional, Urine WBC None, Ur Squamous Epith Cells Occasional, Urine Bacteria None Temp Pulse Resp BP Pulse Ox O2 Del Method 98 F 101 H 19 126/47 L 96 Room Air 10/14/24 11:03 10/14/24 12:26 10/14/24 11:03 10/14/24 12:26 10/14/24 12:26 10/14/24 12:26 Laboratory Results - last 24 hr 10/14/24 11:00: Urine Color Yellow, Urine Appearance Clear, Urine pH 6.0, Ur Specific [place] 1.020, Urine Protein 2+ A, Urine Glucose (UA) Negative, Urine Ketones Negative, Urine Blood 1+ A, Urine Nitrate Negative, Urine Bilirubin Negative, Urine Urobilinogen 1.0, Ur Leukocyte Esterase Negative, Urine RBC Occasional, Urine WBC 5-10, Ur Squamous Epith Cells 20-50, Urine Bacteria Trace 10/14/24 11:18: WBC 16.6 H, RBC 3.94 L, Hgb 11.6 L, Hct 35.3 L, MCV 89.6, MCH 29.4, MCHC 32.9, RDW 14.0, Plt Count 230, MPV 8.9, Neut % (Auto) 79.1, Lymph % (Auto) 14.2, [place] % (Auto) 5.4, Eos % (Auto) 0.5, Baso % (Auto) 0.2, Neut # (Auto) 13.1 H, Lymph # (Auto) 2.4, [place] # (Auto) 0.9, Eos # (Auto) 0.1, Baso # (Auto) 0.0, Sodium 138, Potassium 3.7, Chloride 102, Carbon Dioxide 31 H, Anion Gap 8.7, BUN 12, Creatinine 0.70, Estimated Creat Clear 80, Estimated GFR 88, Est GFR ( Amer) 106, Glucose 128 H, Lactate 1.2, Calcium 9.0, Total Bilirubin 1.3, AST 27, ALT 28, Alkaline Phosphatase 102, Total Protein 7.8, Albumin 4.0, Globulin 3.8 H, Albumin/Globulin Ratio 1.1, Lipase 52, HCV Ab TITO w/Rflx PCR Qn Negative, HIV Ag/Ab Combo Qual Negative I & O for Last 24 hours: Intake & Output 10/11/24 10/12/24 10/13/24 10/14/24 23:59 23:59 23:59 23:59 Intake Total 1200 / 1200 Output Total 0 / 0 Balance 1200 / 1200 Weight 136.078 kg Intake & Output 10/12/24 10/13/24 10/14/24 10/15/24 11:59 11:59 11:59 11:59 Weight 300 lb Constitutional Constitutional: no acute distress *Routine HEENT Exam Head: Present normocephalic Eye: Present EOMI ENT: Present mucous membranes moist *Routine Neck Exam Neck: Present full ROM *Routine Respiratory Exam Respiratory: Absent respiratory distress *Routine Cardiovascular Exam Cardiovascular: Present tachycardia (Mildly tachycardic) *Routine Abdominal Exam Abdominal: Present obese *Routine Rectal Exam Rectal:: deferred *Routine Genitalia Exam Genitalia:: deferred *Routine Extremities Exam Extremities: Present full ROM *Routine Skin Exam Skin: Absent erythema *Routine Neurological Exam Neurological: Present alert Assessment and Plan *Assessment and plan (1) Appendicitis: Status: Acute Category: Medical Code(s): K37 - Unspecified appendicitis Plan Ana Smith is a 54-year-old female who presented with abdominal pain and was found to have a necrotic, microperforated appendicitis s/p laparoscopic appendectomy by general surgery. #Necrotic appendicitis with microperforation #Sepsis ? General Surgery consulted, s/p laparoscopic appendectomy on 10/14/2024. Patient tolerated procedure well. ? Initial WBC 16.6 with tachycardia. ? Continue Zosyn every 8 hours. ? Follow-up blood cultures. ? Morphine, Zofran as needed. #Hypertension ? Hold BP meds as blood pressure normal at this time. Resume once appropriate. #Anxiety/depression ? Continue home sertraline. Full code DVT prophylaxis: Lovenox 40 mg
[2024-10-15] VITALS: BP 165/71; PULSE 97; RESP 17; TEMP 36.9; O2SAT 95
--- NOTE | 2024-10-15 | PC.NURSE ---
Pt ccontinues to c/o abdominal pain 10/10 after a dose of morphine, contacted Dr. Diogenes Rendon for additional pain meds and asked Dr to assess pt. Dr in room for assessment, new orders for additional pain meds received.
[2024-10-15 04:00] VITALS: BP 112/54; PULSE 90; RESP 16; TEMP 37; O2SAT 95; BMI 53.4
[2024-10-15] MEDS: HYDROCODONE/APAP 5/325 MG TABLET 1 TAB PO ×4 (04:00→20:03)
[2024-10-15] MEDS: PIPERACILLIN/TAZO 4.5 GM in 0.9 % SODIUM CHLORIDE 100 ML IV ×4 (04:00→21:24)
--- NOTE | 2024-10-15 04:20 | PC.NURSE ---
Patient is alert and oriented x4. She was observed to have eyes closed, respirations even and unlabored, and no apparent distress throughout the majority of the night. Personal BiPAP machine was worn during resting periods, bedtime use. She tolerates room air, oxygen saturations > 90%, during wakeful periods. Patient has complained of significant abdominal pain this shift, primarily on the right side surrounding her incisions. Lap appendectomy sites (3 total) were assessed; dressings remain clean, dry, and intact. Kill [place] was administered per JUL for pain relief. Other scheduled medications were administered per JUL. Lactated Ringers infuse at 100 mL/hr. Auscultation of heart and lungs within normal findings, bowel sounds hypoactive. Patient denies passing much gas at this time. Patient ambulates independently with standby assistance as needed. She continues to tolerate a clear liquid diet. No reports of nausea/vomiting this shift. At this time, the patient is resting in bed without any further complaints. No new needs at this time. Call light within reach.
[2024-10-15 07:32] LABS: Basophils % 0.2 % (0.1-2.0); Hematocrit 31.7 % (37.0-47.0); Immature Granulocytes % 0.7 %; Lymphocytes # 2.4 K/mm3 (0.7-4.5); Lymphocytes % 15.7 % (10-50); Mean Corpuscular HGB Conc 31.9 g/dL (31.8-35.4); Mean Corpuscular Hemoglobin 28.8 pg (27.0-31.2); Mean Corpuscular Volume 90.3 fl (81-99); Mean Platelet Volume 9.2 fl (7.4-10.4); Monocytes # 0.7 K/mm3 (0.1-1.0); Monocytes % 4.3 % (1.7-9.3); Neutrophils % 79.1 % (37.0-80.0); Nucleated Red Blood Cells # 0 10^3/uL; Nucleated Red Blood Cells % 0 %; Platelet Count 218 K/mm3 (142-424); Red Blood Count 3.51 M/mm3 (4.20-5.40); Red Cell Distribution Width 14.4 % (11.5-17.5); Red Cell Distribution Width-SD 47.6 fL; White Blood Count 15.2 K/mm3 (4.8-10.8)
[2024-10-15 07:48] LABS: Alanine Aminotransferase 22 U/L (12-78); Albumin Level 3.5 g/dl (3.5-5.0); Alkaline Phosphatase 103 U/L (38-126); Anion Gap 9.3 mEq/L (5-15); Aspartate Amino Transferase 27 U/L (14-36); Bilirubin,Total 0.8 mg/dl (0.2-1.3); Blood Urea Nitrogen 12 mg/dl (7-17); Calcium 8.6 mg/dl (8.4-10.2); Carbon Dioxide 31 mmol/L (22.0-30.0); Chloride 105 mmol/L (98-107); Creatinine Clearance Estimated 80 mL/min (50-200); Estimated Glomerular Filt Rate 88 ml/min (>60); GFR (African American) 106 ML/MIN (>60); Globulin 3.5 g/dL (1.3-3.2); Glucose 132 mg/dl (74-100); Magnesium 1.8 mg/dl (1.6-2.3); Potassium 3.3 mmoL/L (3.5-5.1); Sodium 142 mmol/L (136-145)
--- NOTE | 2024-10-15 07:54 | HMH.PHAINT1 ---
Pharmacy Intervention Comments: HOME MEDICATION LIST VERIFIED USING LIST FROM OUTPATIENT PHAACY
[2024-10-15 08:00] VITALS: BP 149/78; PULSE 91; RESP 16; TEMP 36.6; O2SAT 95
[2024-10-15] MEDS: ENOXAPARIN 40MG/0.4ML SYRINGE 40 MG SUBCUT ×2 (08:47→20:03)
[2024-10-15] MEDS: SERTRALINE 50MG TABLET 50 MG PO (08:47)
--- NOTE | 2024-10-15 08:55 | P.PN_ITS ---
Subjective Patient reports: still having pain and flatus Exam Data for Last 24 hours Vital signs and Labs for Last 24 Hours: Temp Pulse Resp BP Pulse Ox O2 Del Method O2 Flow Rate 97.8 F 91 H 16 149/78 H 95 CPAP 2 10/15/24 08:00 10/15/24 08:00 10/15/24 08:00 10/15/24 08:00 10/15/24 08:00 10/15/24 08:00 10/14/24 16:10 Laboratory Results - last 24 hr 10/14/24 11:00: Urine Color Yellow, Urine Appearance Clear, Urine pH 6.0, Ur Specific [place] 1.020, Urine Protein 2+ A, Urine Glucose (UA) Negative, Urine Ketones Negative, Urine Blood 1+ A, Urine Nitrate Negative, Urine Bilirubin Negative, Urine Urobilinogen 1.0, Ur Leukocyte Esterase Negative, Urine RBC Occasional, Urine WBC 5-10, Ur Squamous Epith Cells 20-50, Urine Bacteria Trace 10/14/24 11:18: WBC 16.6 H, RBC 3.94 L, Hgb 11.6 L, Hct 35.3 L, MCV 89.6, MCH 29.4, MCHC 32.9, RDW 14.0, Plt Count 230, MPV 8.9, Neut % (Auto) 79.1, Lymph % (Auto) 14.2, [place] % (Auto) 5.4, Eos % (Auto) 0.5, Baso % (Auto) 0.2, Neut # (Auto) 13.1 H, Lymph # (Auto) 2.4, [place] # (Auto) 0.9, Eos # (Auto) 0.1, Baso # (Auto) 0.0, Sodium 138, Potassium 3.7, Chloride 102, Carbon Dioxide 31 H, Anion Gap 8.7, BUN 12, Creatinine 0.70, Estimated Creat Clear 80, Estimated GFR 88, Est GFR ( Amer) 106, Glucose 128 H, Lactate 1.2, Calcium 9.0, Total Bilirubin 1.3, AST 27, ALT 28, Alkaline Phosphatase 102, Total Protein 7.8, Albumin 4.0, Globulin 3.8 H, Albumin/Globulin Ratio 1.1, Lipase 52, HCV Ab TITO w/Rflx PCR Qn Negative, HIV Ag/Ab Combo Qual Negative 10/14/24 13:15: Urine Color Yellow, Urine Appearance Clear, Urine pH 5.0, Ur Specific [place] <= 1.005, Urine Protein Trace, Urine Glucose (UA) Negative, Urine Ketones Negative, Urine Blood Trace-i, Urine Nitrate Negative, Urine Bilirubin Negative, Urine Urobilinogen 1.0, Ur Leukocyte Esterase Negative, Urine RBC Occasional, Urine WBC None, Ur Squamous Epith Cells Occasional, Urine Bacteria None 10/15/24 06:58: WBC 15.2 H, RBC 3.51 L, Hct 31.7 L, MCV 90.3, MCH 28.8, MCHC 31.9, RDW 14.4, Plt Count 218, MPV 9.2, Neut % (Auto) 79.1, Lymph % (Auto) 15.7, Angel[place] % (Auto) 4.3, Eos % (Auto) 0.0 L, Baso % (Auto) 0.2, Neut # (Auto) 12.0 H, Lymph # (Auto) 2.4, [place] # (Auto) 0.7, Eos # (Auto) 0.0, Baso # (Auto) 0.0, Sodium 142, Potassium 3.3 L, Chloride 105, Carbon Dioxide 31 H, Anion Gap 9.3, BUN 12, Creatinine 0.70, Estimated Creat Clear 80, Estimated GFR 88, Est GFR ( Amer) 106, Glucose 132 H, Calcium 8.6, Magnesium 1.8, Total Bilirubin 0.8, AST 27, ALT 22, Alkaline Phosphatase 103, Total Protein 7.0, Albumin 3.5 D , Globulin 3.5 H, Albumin/Globulin Ratio 1.0 L I & O for Last 24 hours: Intake & Output 10/12/24 10/13/24 10/14/24 10/15/24 11:59 11:59 11:59 11:59 Intake Total 1942 Output Total 0 / 0 Balance 1942 Weight 300 lb 313 lb Constitutional Constitutional: no acute distress *Routine Respiratory Exam Respiratory: Absent respiratory distress *Routine Cardiovascular Exam Cardiovascular: Absent tachycardia *Routine Abdominal Exam Comments: Dressings intact. No spreading cellulitis. Progress Note: A&P Assessment and plan (1) Acute suppurative appendicitis: Problem details: Necrotic/suppurative appendicitis with microperforation Status: Acute Assessment and plan: Overall, doing well postoperative day 1 status post laparoscopic appendectomy. Continue antibiotics Increase ambulation Repeat CBC in a.m. Continue clear liquid diet for now (likely to slowly increase over the next 24 hours)
[2024-10-15 08:57] LABS: Hemoglobin 10.1 g/dL (12.2-16.2)
[2024-10-15] MEDS: CHOLECALCIFEROL 1,000 UNITS (25MCG) TABLET 125 MCG PO (09:47)
[2024-10-15] MEDS: AMLODIPINE 10MG TABLET 10 MG PO (09:47)
[2024-10-15] MEDS: IRBESARTAN 150MG TAB 150 MG PO (09:47)
[2024-10-15] MEDS: LORATADINE 10MG TABLET 10 MG PO (09:47)
--- NOTE | 2024-10-15 11:08 | P.PN_ITS ---
<Statement entered by Chapin Cates MD - 10/15/24 14:43> Rounded on patient after nurse practitioner. Personally examined and interviewed patient. Agree with exam findings and care plan as documented. Subjective *Date: 10/15/24 *Time: 11:52 Interval history: Ms. Smith is a 54-year-old female who presented to the emergency department with worsening abdominal pain. CT scan showed acute appendicitis and patient was surgery for an appendectomy. Patient was then admitted to hospital medicine for further management of postoperative pain and leukocytosis. Patient is sitting up in bed, tolerating clear liquid diet, complains of moderate pain with movement, but states she is doing well from the procedure. Medical Exam Vital signs and Labs for Last 24 Hours: Vital Signs Temp Pulse Pulse Resp BP BP Pulse Ox 10/15/24 10:45 10/15/24 08:00 10/15/24 08:00 97.8 F 91 H 16 149/78 H 95 10/15/24 07:37 10/15/24 06:40 10/15/24 05:00 10/15/24 04:00 98.6 F 90 16 112/54 L 95 10/15/24 03:00 10/15/24 01:00 10/15/24 00:00 98.5 F 97 H 17 165/71 H 95 10/14/24 23:00 10/14/24 21:00 10/14/24 20:00 84 18 92 L 10/14/24 18:51 10/14/24 18:45 83 16 129/86 90 L 10/14/24 18:15 87 16 137/82 93 L 10/14/24 17:45 89 14 141/75 H 92 L 10/14/24 17:15 90 16 133/85 92 L 10/14/24 17:00 88 16 129/73 92 L 10/14/24 17:00 10/14/24 16:48 10/14/24 16:45 87 14 121/75 90 L 10/14/24 16:30 98.5 F 89 16 124/73 93 L 10/14/24 16:30 87 18 123/74 96 10/14/24 16:20 87 18 123/74 96 10/14/24 16:10 88 18 126/77 96 10/14/24 16:08 99.5 F 86 18 118/72 10/14/24 16:08 98 H 18 140/92 H 94 L 10/14/24 16:00 99.5 F 88 18 122/73 96 10/14/24 13:56 98.0 F 86 15 125/85 10/14/24 12:26 101 H 126/47 L 96 10/14/24 11:30 106 H 128/62 95 O2 Del Method O2 Flow Rate 10/15/24 10:45 Room Air 10/15/24 08:00 CPAP 10/15/24 08:00 CPAP 10/15/24 07:37 Room Air 10/15/24 06:40 BiPAP 10/15/24 05:00 BiPAP 10/15/24 04:00 BiPAP 10/15/24 03:00 BiPAP 10/15/24 01:00 BiPAP 10/15/24 00:00 BiPAP 10/14/24 23:00 BiPAP 10/14/24 21:00 Room Air 10/14/24 20:00 Room Air 10/14/24 18:51 Room Air 10/14/24 18:45 Room Air 10/14/24 18:15 Room Air 10/14/24 17:45 Room Air 10/14/24 17:15 Room Air 10/14/24 17:00 Room Air 10/14/24 17:00 Room Air 10/14/24 16:48 Room Air 10/14/24 16:45 Room Air 10/14/24 16:30 Room Air 10/14/24 16:30 Room Air 10/14/24 16:20 Room Air 10/14/24 16:10 Nasal Cannula 2 10/14/24 16:08 10/14/24 16:08 Room Air 10/14/24 16:00 Nasal Cannula 4 10/14/24 13:56 Room Air 10/14/24 12:26 Room Air 10/14/24 11:30 Intake and Output 10/14/24 10/15/24 10/15/24 23:59 07:59 15:59 Intake Total 1200 / 1943 743 / 743 Output Total 0 / 0 0 / 0 Balance 1200 / 3 743 / 743 Intake: Intake, Oral Amount 150 / 150 Intake, Total IV Amount 1200 / 1200 Infusion Intake 593 / 593 Lactated Ringers 1000ML 1,000 493 / 493 ml @ 100 mls/hr IV .Q10H [facility] Rx #:[id number] Piperacillin/Tazo 4.5 gm In 0.9 100 / 100 % Sodium Chloride 100 ml @ 200 mls/hr IV Q6H [facility] Rx#: [id number] Output: Output, Urine Amount 0 / 0 0 / 0 Other: Number of Unmeasured Voids 1 1 Weight 141.974 kg Patient Weight 10/15/24 23:59 Weight 141.974 kg Laboratory Results - last 24 hr 10/14/24 11:00: Urine Color Yellow, Urine Appearance Clear, Urine pH 6.0, Ur Specific [place] 1.020, Urine Protein 2+ A, Urine Glucose (UA) Negative, Urine Ketones Negative, Urine Blood 1+ A, Urine Nitrate Negative, Urine Bilirubin Negative, Urine Urobilinogen 1.0, Ur Leukocyte Esterase Negative, Urine RBC Occasional, Urine WBC 5-10, Ur Squamous Epith Cells 20-50, Urine Bacteria Trace 10/14/24 11:18: WBC 16.6 H, RBC 3.94 L, Hgb 11.6 L, Hct 35.3 L, MCV 89.6, MCH 29.4, MCHC 32.9, RDW 14.0, Plt Count 230, MPV 8.9, Neut % (Auto) 79.1, Lymph % (Auto) 14.2, [place] % (Auto) 5.4, Eos % (Auto) 0.5, Baso % (Auto) 0.2, Neut # (Auto) 13.1 H, Lymph # (Auto) 2.4, [place] # (Auto) 0.9, Eos # (Auto) 0.1, Baso # (Auto) 0.0, Sodium 138, Potassium 3.7, Chloride 102, Carbon Dioxide 31 H, Anion Gap 8.7, BUN 12, Creatinine 0.70, Estimated Creat Clear 80, Estimated GFR 88, Est GFR ( Amer) 106, Glucose 128 H, Lactate 1.2, Calcium 9.0, Total Bilirubin 1.3, AST 27, ALT 28, Alkaline Phosphatase 102, Total Protein 7.8, Albumin 4.0, Globulin 3.8 H, Albumin/Globulin Ratio 1.1, Lipase 52, HCV Ab TITO w/Rflx PCR Qn Negative, HIV Ag/Ab Combo Qual Negative 10/14/24 13:15: Urine Color Yellow, Urine Appearance Clear, Urine pH 5.0, Ur Specific [place] <= 1.005, Urine Protein Trace, Urine Glucose (UA) Negative, Urine Ketones Negative, Urine Blood Trace-i, Urine Nitrate Negative, Urine Bilirubin Negative, Urine Urobilinogen 1.0, Ur Leukocyte Esterase Negative, Urine RBC Occasional, Urine WBC None, Ur Squamous Epith Cells Occasional, Urine Bacteria None 10/15/24 06:58: WBC 15.2 H, RBC 3.51 L, Hgb 10.1 L D, Hct 31.7 L, MCV 90.3, MCH 28.8, MCHC 31.9, RDW 14.4, Plt Count 218, MPV 9.2, Neut % (Auto) 79.1, Lymph % (Auto) 15.7, [place] % (Auto) 4.3, Eos % (Auto) 0.0 L, Baso % (Auto) 0.2, Neut # (Auto) 12.0 H, Lymph # (Auto) 2.4, [place] # (Auto) 0.7, Eos # (Auto) 0.0, Baso # (Auto) 0.0, Sodium 142, Potassium 3.3 L, Chloride 105, Carbon Dioxide 31 H, Anion Gap 9.3, BUN 12, Creatinine 0.70, Estimated Creat Clear 80, Estimated GFR 88, Est GFR ( Amer) 106, Glucose 132 H, Calcium 8.6, Magnesium 1.8, Total Bilirubin 0.8, AST 27, ALT 22, Alkaline Phosphatase 103, Total Protein 7.0, Albumin 3.5 D, Globulin 3.5 H, Albumin/Globulin Ratio 1.0 L I & O for Labs for Last 24 Hours: Intake & Output 10/12/24 10/13/24 10/14/24 10/15/24 23:59 23:59 23:59 23:59 Intake Total 1200 1942 743 / 743 Output Total 0 / 0 0 / 0 Balance 1199 743 / 743 Weight 136.078 kg 141.974 kg Constitutional: Present no acute distress and obese Head: Present normocephalic Neck: Present normal inspection and full ROM Respiratory: Present CTA bilaterally and able to speak in complete sentences Cardiac: Present Reg Rate and Rhythm and No Murmur GI: Present soft, tenderness and normal bowel sounds; Absent distention Rectal (female): Present deferred (female): Present deferred Extremities: Present normal inspection; Absent tenderness Skin: Present intact Comment:: 3x times abdominal surgical sites with dressing, clean dry and intact. Neuro: Present alert, awake, oriented x 3 and moves all extremities Assessment and Plan *Assessment and plan (1) Acute suppurative appendicitis: Problem Comment: Necrotic/suppurative appendicitis with microperforation Status: Acute Category: Medical Code(s): K35.80 - Unspecified acute appendicitis (2) Adult BMI 50.0-59.9 kg/sq m: Status: Acute Category: Medical Code(s): Z68.43 - Body mass index [BMI] 50.0-59.9, adult (3) Obesity: Status: Acute Category: Medical Code(s): E66.9 - Obesity, unspecified (4) Hypertension: Status: Acute Category: Medical Code(s): I10 - Essential (primary) hypertension (5) Depression: Status: Acute Category: Medical Code(s): F32.A - Depression, unspecified (6) GERD (gastroesophageal reflux disease): Status: Acute Category: Medical Code(s): K21.9 - Gastro-esophageal reflux disease without esophagitis Plan Mrs. Townsend a 54-year-old female presented with diffuse abdominal pain and elevated white count, and is now status post appendectomy. She was found to have necrotic microperforated appendicitis. Surgery was performed by Dr. Jean. Patient this morning is doing well, sitting up in bed drinking fluids, moderate pain with movement and to palpation, bowel sounds normal active and patient has been having flatus. Patient denies having a bowel movement, discussed with patient increased movement today, encouraged ambulation later this afternoon with assistance as needed. Discussed advancing diet from clear liquids to full liquids this evening. She is tolerating oral pain medication. #Acute supportive appendicitis #Adult BMI over 50.0 to 59.9 #Obesity ?Dr. Jean rounded on patient this morning, reports surgery sites look good and to keep a close watch on the patient throughout the day today. Recommends advancing diet as tolerated. ?White count has trended down from 16.6-15.1 today. Will continue Zosyn every 8 hours. Patient has remained afebrile. ?Blood cultures currently pending. ?Patient complains of moderate pain with movement, patient has morphine and Zofran IV, and [place] as needed for pain. Patient states pain is well-controlled with pain medication regimen. ?Discussed with patient the need for increased ambulation today. #Hypertension ?Continue patient home meds: Avapro 150 daily, amlodipine 10 mg daily #Depression ?Continue patient home meds: Sertraline 50 mg daily #GERD ?Continue home meds: Protonix 40 mg at bedtime Clear liquid diet, advancing to full liquid diet as tolerated Continuing IV antibiotics Repeat CBC in the a.m. Full code DVT prophylaxis: Lovenox 40 mg subcu
--- OUTSIDE RECORDS SUMMARY | 2024-10-15 11:26 | XMS_ITS | Continuity of Care Document ---
Author Organization Formerly [facility]. If a dditional information is needed, contact Health Information Management at [phone] [address] [place] [address] Phone Care Team Providers Care Implementation Director Name Role Phone Unavailable Unavailable Unavailable Problems Migraine, unspecified, not i ntractable, without status migrainosus(G43.909) Comments:Migraines Essential (primary) hyperten sabiha(I10) Comments:Hypertension Pneumonia, unspecified organ ism(J18.9) Comments:Pneumonia Unspecified asthma, uncompli cated(J45.909) Comments:Asthma Gastro-esophageal reflux dis ease without esophagitis Comments:Reflux Unspecified osteoarthritis, unspecified site(M19.90) Comments:Arthritis Unspecified multiple injurie s, initial encounter(T07.XXXA) Comments:Fractures Mental Status Cognitive function finding 10-Mar-2020 Functional Status Functional finding 06-Mar-2020 Functional finding 06-Mar-2020 Functional finding 06-Mar-2020 Functional finding 06-Mar-2020 Functional finding 18-Jan-2019 Functional finding 18-Jan-2019 Functional finding 18-Jan-2019 Functional finding 18-Jan-2019 Allergies and Adverse Reactions prednisone(Allergy) Onset: 10-Mar-2020 Reaction:Hypertension Bee Pollen(Allergy) Onset: 10-Mar-2020 Reaction:Swelling NARCOTICS(Allergy) Onset: 10-Mar-2020 Reaction:Hypertension Narcotics(Allergy) predniSONE 20 MG Oral Tablet (Allergy) Medications acetaminophen 325 MG / HYDROcodone bitartrate 5 MG Oral Tablet;1 TAB ORAL Q6H Start:10-Mar-2020 Comments:1 tab PO Q6H As Needed for Abdominal Pain ondansetron 4 MG Oral Tablet ;4 MG ORAL Four Times a Day Start:10-Mar-2020 Comments:4 mg PO QID As Needed for Nausea And Vomiting Velivet;1 TAB ORAL Daily Start:18-Jan-2019 Comments:1 tab PO DAILY omeprazole 20 mg capsule,delayed release;20 MG ORAL Daily Start:18-Jan-2019 Status:Aborted Comments:20 mg PO DAILY montelukast 10 MG Oral Table t [Singulair];10 MG ORAL Each Morning Start:18-Jan-2019 Comments:10 mg PO AM amLODIPine 10 MG Oral Tablet ;10 MG ORAL Each Morning Start:18-Jan-2019 Comments:10 mg PO AM omeprazole 20 mg capsule,delayed release;20 MG ORAL Two Times a Day Start:18-Jan-2019 Comments:20 mg PO BID sertraline 50 MG Oral Tablet ;50 MG ORAL Each Morning Start:18-Jan-2019 Comments:50 mg PO AM [id number];10 MG ORAL Each Morning Start:18-Jan-2019 Comments:10 mg PO AM Vitamin [id number];500 00 UNITS ORAL Each Morning Start:18-Jan-2019 Comments:73720 units PO AM Telmisartan;80 MG ORAL Each Morning Start:18-Jan-2019 Comments:80 mg PO AM Inderal Xl;120 MG ORAL Each Morning Start:18-Jan-2019 Comments:120 mg PO AM cetirizine hydrochloride 10 MG Oral Tablet;10 MG Orally Once a day, 1 tablet Quantity:30 Bowling Luis Antonio Stewartothy Start:26-Dec-2018 Comments:10 MG Orally Once a day, 1 tablet Ergocalciferol 11128 UNT Ora l Capsule;00377 UNIT Orally , 1 capsule Quantity:4 Bowling Luis Antonio Rex Start:26-Dec-2018 Status:Inactive Comments:53419 UNIT Orally , 1 capsule 24 HR Propranolol Hydrochlor monisha 120 MG Extended Release Oral Capsule;120 MG Oral , Quantity:180 Russling Luis Antonio Goodman Comments:120 MG Oral , {7 (Desogestrel 0.1 MG / Ethinyl Estradiol 0.025 MG Oral Tablet) / 7 (Desogestrel 0.125 MG / Ethinyl Estradiol 0.025 MG Oral Tablet) / 7 (Desogestrel 0.15 MG / Ethinyl Estradiol 0.025 MG Oral Tablet) / 7 (Inert Ingredients 1 MG Oral Tablet) } Pack [Velivet 28 Day];0.1/0.125/0.15 -0.025 MG Oral , Quantity:28 Bowling Luis Antonio Goodman Comments:0.1/0.125/0.15 -0.0 25 MG Oral , Omeprazole 20 MG Delayed Release Oral Capsule;20 MG Oral , Quantity:90 Bowling Luis Antonio Rex Comments:20 MG Oral , montelukast 10 MG Oral Tablet;10 MG Oral , Quantity:90 Bowling Luis Antonio Rex Comments:10 MG Oral , Telmisartan;80 MG Oral , Quantity:90 Bowling Luis Antonio Rex Comments:80 MG Oral , Sertraline HCl;50 MG Oral , Quantity:90 Bowling Luis Antonio Rex Comments:50 MG Oral , Amlodipine Besylate;10 MG Or al , Quantity:90 Bowling Luis Antonio Rex Comments:10 MG Oral , Social History Smoking Status Never smoked tobacco Recorded: 18-Jan-2019
--- OUTSIDE RECORDS SUMMARY | 2024-10-15 11:27 | XMS_ITS | Patient Health Record ---
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 Name Role Phone ANGEL MADERA Primary Care Provider Unavail able HAYLEE RENEE Unavailable [phone] Allergies Allergen (clinical drug ingredient) Drug/Non Drug [...] Oral for 28 Active Vitamin D (Ergocalciferol) 91919 UNIT 1 capsule Orally for 30 day(s) [...] Problem Status W/U Status Risk Notes Problem [id number] Hypertension (I10) Active confirmed Problem [id number] Asthma (J45.909) Active confirmed Problem migraine (disorder) (20174503) Migraines (G43.909) Active confirmed Problem Pneumonia (165438554) Pneumonia (J18.9) Active confirmed Problem Gastroesophageal reflux disease (431727728) Reflux (K21.9) Active confirmed Problem 2875746 Arthritis (M19.90) Active confirmed Problem Fracture of multiple sites of bone (morphologic abnormality) (7139397) Fractures (T07.XXXA) Active confirmed Plan Of Treatment Pending Test Test Name Order Date LAPAROSCOPIC CHOLECYSTECTOMY (15722) Insurance Providers Payer Name Payer Address Payer Phone Subscriber Number Group Number Insured Name Patient Relationship to Insured Coverage Start Date Coverage End Date [employer]-H[employer] [address] [place], [place] [id number] [phone] [id number] KEO BUTCHER Spouse - patient is the spouse of the insured Medical (General) History Medical History History ICD Code Arthritis M19.90 Fractures T07.XXXA Hypertension I10 Reflux K21.9 Asthma J45.909 Pneumonia J18.9 Migraines G43.909 Surgical History Surgery Date(Month/Year) ex lap-endometriosis lap leslie Hospitalization History Reason Date(Month/Year) Pneumonia 2015
[2024-10-15 12:00] VITALS: BP 138/64; PULSE 90; RESP 16; TEMP 36.6; O2SAT 96
[2024-10-15] MEDS: SENNOSIDES 8.6MG/DOCUSATE 50MG TABLET 1 TAB PO (12:54)
[2024-10-15] MEDS: POTASSIUM CHLORIDE 20MEQ TAB 40 MEQ PO ×2 (12:55→15:52)
[2024-10-15 16:00] VITALS: BP 130/68; PULSE 89; RESP 16; TEMP 36.6; O2SAT 96
--- NOTE | 2024-10-15 16:18 | PC.NURSE ---
PT IS RESTING IN BED. ALERT AND ORIENTED X4. TOLERATING CLEAR LIQUIDS. MEDICATED PER MAR FOR DISCOMFORT. DRESSINGS TO SURGICAL SITES C/D/I. PT HAS AMBULATED IN THE MATTA THIS SHIFT AND TO THE BATHROOM. PASSING FLATUS. LUNG SOUNDS CLEAR. PT SLEEPING WITH HOME CPAP. VSS. WILL CONTINUE TO MONITOR.
[2024-10-15 20:00] VITALS: BP 150/94; PULSE 98; RESP 16; TEMP 36.7; O2SAT 95
[2024-10-15] MEDS: MONTELUKAST SODIUM 10MG TAB 10 MG PO (20:03)
[2024-10-15] MEDS: PANTOPRAZOLE 40MG TABLET 40 MG PO (20:03)
[2024-10-15] MEDS: ONDANSETRON 4MG/2ML VIAL 4 MG IV (21:24)
[2024-10-15] MEDS: MORPHINE 2MG/ML SYRINGE 1 MG IV (22:50)
[2024-10-15] MEDS: MORPHINE 4MG/ML SYRINGE 6 MG IV (23:57)
[2024-10-16] VITALS: BP 148/78; PULSE 99; RESP 20; TEMP 37.1; O2SAT 92
[2024-10-16] MEDS: PIPERACILLIN/TAZO 4.5 GM in 0.9 % SODIUM CHLORIDE 100 ML IV ×2 (03:08→10:11)
[2024-10-16 04:00] VITALS: BP 152/82; PULSE 87; RESP 20; TEMP 36.6; O2SAT 94; BMI 53.4
--- NOTE | 2024-10-16 04:56 | PC.NURSE ---
Pt has rested intermittently this shift. Pt has c/o moderate to severe pain in her abdomen and was treated per MAR. Pt now denies pain and is able to rest. Pt incision site dressings (x3) to lower abdomen remain clean and intact. Pt admits to gas however denies a BM. Pt has tolerated antibiotic therapy well.
[2024-10-16 07:13] LABS: Basophils % 0.3 % (0.1-2.0); Eosinophils # 0.2 Kmm3 (0.0-0.4); Eosinophils % 1.9 % (0.1-12.0); Hemoglobin 9.9 g/dL (12.2-16.2); Immature Granulocytes # 0.08 10^3uL; Immature Granulocytes % 0.9 %; Lymphocytes # 2.4 K/mm3 (0.7-4.5); Lymphocytes % 26.3 % (10-50); Mean Corpuscular HGB Conc 31.9 g/dL (31.8-35.4); Mean Corpuscular Hemoglobin 29.6 pg (27.0-31.2); Mean Corpuscular Volume 92.8 fl (81-99); Mean Platelet Volume 8.9 fl (7.4-10.4); Monocytes # 0.4 K/mm3 (0.1-1.0); Monocytes % 4.7 % (1.7-9.3); Neutrophils % 65.9 % (37.0-80.0); Nucleated Red Blood Cells # 0 10^3/uL; Nucleated Red Blood Cells % 0 %; Platelet Count 233 K/mm3 (142-424); Red Blood Count 3.34 M/mm3 (4.20-5.40); Red Cell Distribution Width 14.5 % (11.5-17.5); Red Cell Distribution Width-SD 49.1 fL; White Blood Count 9.2 K/mm3 (4.8-10.8)
--- NOTE | 2024-10-16 07:14 | EXP.SURG.PN ---
Subjective Patient reports: still having pain Narrative: Significant increase in pain overnight requiring IV morphine. She states that she feels quite a bit better right now . Exam Data for Last 24 hours Vital signs and Labs for Last 24 Hours: Temp Pulse Resp BP Pulse Ox O2 Del Method O2 Flow Rate 97.9 F 87 20 152/82 H 94 L CPAP 2 10/16/24 04:00 10/16/24 04:00 10/16/24 04:00 10/16/24 04:00 10/16/24 04:00 10/16/24 06:35 10/14/24 16:10 Laboratory Results - last 24 hr 10/15/24 06:58: WBC 15.2 H, RBC 3.51 L, Hgb 10.1 L D, Hct 31.7 L, MCV 90.3, MCH 28.8, MCHC 31.9, RDW 14.4, Plt Count 218, MPV 9.2, Neut % (Auto) 79.1, Lymph % (Auto) 15.7, [place] % (Auto) 4.3, Eos % (Auto) 0.0 L, Baso % (Auto) 0.2, Neut # (Auto) 12.0 H, Lymph # (Auto) 2.4, [place] # (Auto) 0.7, Eos # (Auto) 0.0, Baso # (Auto) 0.0, Sodium 142, Potassium 3.3 L, Chloride 105, Carbon Dioxide 31 H, Anion Gap 9.3, BUN 12, Creatinine 0.70, Estimated Creat Clear 80, Estimated GFR 88, Est GFR ( Amer) 106, Glucose 132 H, Calcium 8.6, Magnesium 1.8, Total Bilirubin 0.8, AST 27, ALT 22, Alkaline Phosphatase 103, Total Protein 7.0, Albumin 3.5 D, Globulin 3.5 H, Albumin/Globulin Ratio 1.0 L I & O for Last 24 hours: Intake & Output 10/13/24 10/14/24 10/15/24 10/16/24 11:59 11:59 11:59 11:59 Intake Total 1942 1150 / 1150 Output Total 0 / 0 250 / 250 Balance 1942 900 / 900 Weight 300 lb 313 lb 312 lb 15.985 oz Microbiology Reports for the Last 24 Hours: Microbiology 10/14/24 12:50 Blood Blood Culture - Preliminary NO GROWTH AFTER 24 HOURS 10/14/24 12:50 Blood Blood Culture - Preliminary NO GROWTH AFTER 24 HOURS Constitutional Constitutional: no acute distress *Routine Respiratory Exam Respiratory: Absent respiratory distress *Routine Cardiovascular Exam Cardiovascular: Absent tachycardia *Routine Abdominal Exam Comments: Incisions healing without evidence of infection Progress Note: A&P Assessment and plan (1) Acute suppurative appendicitis: Problem details: Necrotic/suppurative appendicitis with microperforation Status: Acute Assessment and plan: Overall, doing well postoperative day 2 status post laparoscopic appendectomy. Episodic increased pain overnight noted. Vital signs are currently stable and she feels better . Continue antibiotics Follow-up a.m. labs (2) Adult BMI 50.0-59.9 kg/sq m: Status: Acute
[2024-10-16 07:53] VITALS: BP 123/74; PULSE 87; RESP 18; TEMP 36.9; O2SAT 96
--- NOTE | 2024-10-16 07:53 | EXP.ANES.II ---
[facility] Anesthesia Record Part II Anesthesia Record Part II Discharge Time: 16:30 Destination: Medical Surgical Department PACU nurse assessment reviewed?: Yes Patient Condition:: Good Anesthesia Complications:: None Swallowing reflex intact?: Yes Airway Patency: Patent Cyanosis?: No Blood Pressure: 123/74 SaO2: 96 Respiratory Rate: 18 Pulse Rate: 87 Temperature: 98.5 F Mental Status: Alert & Oriented Pain level:: 0 Nausea and/or vomitting:: None Intake, IV Amount: 0 Hydration: Adequate
[2024-10-16 08:00] VITALS: BP 160/85; PULSE 92; RESP 19; TEMP 36.8; O2SAT 95
[2024-10-16] MEDS: CHOLECALCIFEROL 1,000 UNITS (25MCG) TABLET 125 MCG PO (08:23)
[2024-10-16] MEDS: ENOXAPARIN 40MG/0.4ML SYRINGE 40 MG SUBCUT (08:23)
[2024-10-16] MEDS: KETOROLAC 30MG/ML VIAL 15 MG IV ×2 (08:24→12:33)
[2024-10-16] MEDS: IRBESARTAN 150MG TAB 150 MG PO (08:25)
[2024-10-16] MEDS: SERTRALINE 50MG TABLET 50 MG PO (08:25)
[2024-10-16] MEDS: LORATADINE 10MG TABLET 10 MG PO (08:25)
[2024-10-16] MEDS: SENNOSIDES 8.6MG/DOCUSATE 50MG TABLET 1 TAB PO (08:25)
[2024-10-16] MEDS: AMLODIPINE 10MG TABLET 10 MG PO (08:25)
--- NOTE | 2024-10-16 09:53 | P.DS_ITS ---
<Statement entered by Chapin Cates MD - 10/16/24 13:54> Rounded on patient after nurse practitioner. Personally examined and interviewed patient. Agree with exam findings and care plan as documented. General Admission date:: 10/14/24 Discharge date: 10/16/24 HPI HPI HPI: This is a 54-year-old female who presents the emergency department with increasing abdominal pain. Radiographic evidence consistent with appendicitis noted per CT scan. Leukocytosis also confirmed. Forwarded from emergency department evaluation: This patient is a 54-year-old female with a history of obesity and prior cholecystectomy presenting to the emergency department for evaluation with concern for severe right lower quadrant abdominal pain that is now generalized. She notes that it started Tuesday night but has significantly worsened since then. She is not been able to eat anything since Tuesday. She notes nausea but no vomiting given that she is not eating anything. No fevers, change in bowel movements, or urinary symptoms noted. The pain is worse with any sort of movements and worse with hitting bumps on the roads on the way over here. No falls or injuries noted. Medical Decision Narrative: In summary, this patient is a 54-year-old female presenting to the Emergency Department for evaluation of right lower quadrant tenderness to palpation, nausea, anorexia for 3 days. Differential diagnoses considered include but are not limited to appendicitis, colitis, peritonitis, ovarian cyst, ovarian torsion, cystitis, pyelonephritis, ureterolithiasis. Ruling out the most morbid conditions drove assessment. It should be noted patient's history includes obesity which is not at goal therapy. This complicates all aspects of care by increasing patient's risk for morbidity. On exam, the patient is uncomfortable appearing. She is tachycardic but otherwise vitals are normal on cardiac telemetry. She is nontoxic-appearing. She has generalized abdominal tenderness with guarding, worse in the right lower quadrant. Workup included CBC, CMP, lipase, lactic acid, urinalysis, CT abdomen pelvis with IV contrast. She is given a bolus of fluids as well as IV Toradol, acetaminophen, Zofran, and morphine for symptomatic improvement. Hospital Course Hospital Course Hospital Course: Ms. Smith is a 54-year-old female who presented to the emergency department with worsening abdominal pain. CT scan showed acute appendicitis and patient was surgery for an appendectomy. Patient was then admitted to hospital medicine for further management of postoperative pain and leukocytosis. Patient has done well during her stay, is tolerating a full liquid diet, with plans to advance to a regular diet. She did have 1 episode of intense pain overnight that was treated with morphine IV. She states this morning that her pain is manageable rating it at a 3 out of 10. Patient has been taking Toradol for pain and states that it is working well. Will send her home with Toradol 10 mg p.o. every 8 hours as needed. Discussed with her to hold Celebrex while she is taking the Toradol. Also discussed taking Tylenol as needed. #Acute supportive appendicitis #Adult BMI over 50.0 to 59.9 #Obesity ? Discussed POC with Dr. Jean this morning, agreeable for discharge this afternoon. Will plan for close follow-up outpatient. ?Patient tolerated regular lunch today without any issues. She has not had a bowel movement since being admitted to the hospital, but is passing gas and has normoactive bowel sounds. ? Leukocytosis resolved, WBC 9.2. Will continue Augmentin 875/125 mg twice daily x 5 days. ? Blood cultures preliminary shows no growth after 24 hours. ? Overall, patient's pain has been well-controlled post surgery. Patient has remained hemodynamically stable in the postoperative period. ? Patient has ambulated well, without assistance, and minimal pain. #Hypertension ?Continue patient home meds: Telmisartan 80 mg, amlodipine 10 mg daily #Depression ?Continue patient home meds: Sertraline 75 mg daily #GERD ?Continue home meds: Omeprazole 20 mg p.o. daily, famotidine 40 mg daily Total time spent on discharge: 32 minutes on chart review, counseling, documentation, and direct care with patient. Exam Data for Last 24 hours Vital signs and Labs for Last 24 Hours: Temp Pulse Resp BP Pulse Ox O2 Del Method O2 Flow Rate 98.3 F 92 H 19 160/85 H 95 CPAP 2 10/16/24 08:00 10/16/24 08:00 10/16/24 08:00 10/16/24 08:00 10/16/24 08:00 10/16/24 09:00 10/14/24 16:10 Laboratory Results - last 24 hr 10/16/24 06:46: WBC 9.2 D, RBC 3.34 L, Hgb 9.9 L, Hct 31.0 L, MCV 92.8, MCH 29.6, MCHC 31.9, RDW 14.5, Plt Count 233, MPV 8.9, Neut % (Auto) 65.9, Lymph % (Auto) 26.3, Maries % (Auto) 4.7, Eos % (Auto) 1.9, Baso % (Auto) 0.3, Neut # (Auto) 6.0, Lymph # (Auto) 2.4, Maries # (Auto) 0.4, Eos # (Auto) 0.2, Baso # (Auto) 0.0 I & O for Last 24 hours: Intake & Output 10/13/24 10/14/24 10/15/24 10/16/24 23:59 23:59 23:59 23:59 Intake Total 1200 / 1943 1433 / 1893 460 / 460 Output Total 0 / 0 0 / 0 250 / 250 Balance 1200 / 1943 1433 / 1893 210 / 210 Weight 136.078 kg 141.974 kg 141.974 kg Microbiology Reports for the Last 24 Hours: Microbiology 10/14/24 12:50 Blood Blood Culture - Preliminary NO GROWTH AFTER 24 HOURS 10/14/24 12:50 Blood Blood Culture - Preliminary NO GROWTH AFTER 24 HOURS Constitutional Constitutional: no acute distress and cooperative *Routine HEENT Exam Head: Present normocephalic *Routine Neck Exam Neck: Present supple and full ROM *Routine Respiratory Exam Respiratory: Present CTA bilaterally, normal respiratory effort and able to speak in complete sentences *Routine Cardiovascular Exam Cardiovascular: Present RRR and murmur *Routine Abdominal Exam Abdominal: Present soft, normoactive bowel sounds, tenderness and obese; Absent distended or firm *Routine Extremities Exam Extremities: Present full ROM and calf tenderness; Absent edema *Routine Skin Exam Skin: Present intact and dry Comments: Surgical sites x 3 clean dry and intact *Routine Neurological Exam Neurological: Present alert, oriented X3 and normal speech Results Data Completed and Pending Labs on day of discharge: Labs from last 24 hours 10/16/24 06:46 WBC 9.2 D RBC 3.34 L Hgb 9.9 L Hct 31.0 L MCV 92.8 MCH 29.6 MCHC 31.9 RDW 14.5 Plt Count 233 MPV 8.9 Neut % (Auto) 65.9 Lymph % (Auto) 26.3 Maries % (Auto) 4.7 Eos % (Auto) 1.9 Baso % (Auto) 0.3 Neut # (Auto) 6.0 Lymph # (Auto) 2.4 Maries # (Auto) 0.4 Eos # (Auto) 0.2 Baso # (Auto) 0.0 Preliminary micro results at discharge 10/14/24 12:50 Blood Culture - Preliminary Blood NO GROWTH AFTER 24 HOURS 10/14/24 12:50 Blood Culture - Preliminary Blood NO GROWTH AFTER 24 HOURS DS: Diagnosis Discharge Diagnosis (1) Acute suppurative appendicitis: Status: Acute Code(s): K35.80 - Unspecified acute appendicitis Problem details: Necrotic/suppurative appendicitis with microperforation (2) Adult BMI 50.0-59.9 kg/sq m: Status: Acute Code(s): Z68.43 - Body mass index [BMI] 50.0-59.9, adult (3) GERD (gastroesophageal reflux disease): Status: Acute Code(s): K21.9 - Gastro-esophageal reflux disease without esophagitis (4) Depression: Status: Acute Code(s): F32.A - Depression, unspecified (5) Hypertension: Status: Acute Code(s): I10 - Essential (primary) hypertension (6) Obesity: Status: Acute Code(s): E66.9 - Obesity, unspecified Meds Home Medications and Allergies Home Medications ?Medication ?Instructions ?Recorded ?Confirmed ?Type omeprazole 20 mg capsule,delayed 20 mg PO DAILY 10/14/24 History release amlodipine 10 mg tablet 10 mg PO DAILY 11/13/1812/31 History sertraline 50 mg tablet 75 mg PO DAILY 05/25/1901/31 History telmisartan 80 mg tablet 80 mg PO DAILY 05/25/1912/31 History famotidine 40 mg tablet 40 mg PO DAILY #10 tabs 02/0710/14/24 Rx celecoxib 200 mg capsule 200 mg PO BID 07/05/2310/14 History Held on 10/16/24. Instructions: Resume on 10/20/24. Please hold Celebrex until after you are finished taking the Toradol. cholecalciferol (vitamin D3) 125 125 mcg PO DAILY 06/1010/14/24 History mcg (5,000 unit) capsule cyanocobalamin (vitamin B-12) 500 500 mcg PO DAILY 10/14/24 History mcg tablet cetirizine 10 mg tablet 10 mg PO DAILY 10/15/2401/31 History montelukast 10 mg tablet 10 mg PO HS 10/15/24 5 History amoxicillin 875 mg-potassium 1 tab PO BID Infection #1 0 tabs 10/16/24 Rx clavulanate 125 mg tablet ketorolac 10 mg tablet 10 mg PO Q8H PRN pain #9 tab s 10/16/24 Rx New Prescriptions to Start Prescriptions: amoxicillin-pot clavulanate Kateryna Anderson ketorolac Kateryna Anderson Allergies Allergy/AdvReac Type Severity Reaction Status Date / Time prednisone (PREDNISONE) Allergy Mild Verified 05/27/21 13:46 Discharge Plan Disposition Patient Disposition: Home, Self-Care Condition: Fair Discharge Order Discharge Orders: Discharge Order (Routine); Ordered 10/16/24 Ordered By: Kateryna Anderson Follow up Plan Follow up with: Pavel Kate [Primary Care Provider, Medical] - See instructions Wes Jean MD [Staff Physician, General Surgery] - 10/24/24 1:30 pm Referral Note: Prescriptions/Medication Reconciliation: New amoxicillin-pot clavulanate 875-125 mg tablet 1 tab PO BID Qty: 10 0RF ketorolac 10 mg tablet 10 mg PO Q8H PRN (Reason: pain) Qty: 9 0RF Rx Instructions: maximum total duration of 5 days from all oral, intranasal, or parenteral formulations Continued omeprazole 20 mg capsule,delayed release(DR/EC) 20 mg PO DAILY amlodipine 10 mg tablet 10 mg PO DAILY telmisartan 80 tablet 80 mg PO DAILY sertraline 50 MG tablet 75 mg PO DAILY cyanocobalamin (vitamin B-12) 500 mcg tablet 500 mcg PO DAILY cholecalciferol (vitamin D3) 125 mcg (5,000 unit) capsule 125 mcg PO DAILY cetirizine 10 mg tablet 10 mg PO DAILY montelukast 10 mg tablet 10 mg PO HS famotidine 40 MG tablet 40 mg PO DAILY Qty: 10 0RF Held celecoxib 200 mg capsule 200 mg PO BID Hold Instructions: Resume on 10/20/24. Please hold Celebrex until after you are finished taking the Toradol. Problem Reconciliation Problems Reviewed?: Yes Patient Discharge Instructions ACTIVITY: Continue current activity and No heavy lifting DIET: continue same diet Stand Alone Forms: [facility] Work Release Patient Instructions: How to Care for a Surgical Wound, Appendicitis, DI for Acute Abdominal Pain, Surgical Site Infection, Stop Light Infection Print Language: Hungarian Providers Primary Care Provider: Pavel Kate Admit Provider: Ham Rojas Attending Provider: Ham Rojas
[2024-10-16 12:00] VITALS: BP 160/85; PULSE 96; RESP 18; TEMP 36.9; O2SAT 95
--- NOTE | 2024-10-17 11:15 | SW/DCPLANNER ---
Spoke with patient on the phone. Patient stated that she is doing good. Patient stated that she is aware of her upcoming appointments. Patient stated that she was able to get her new medicine picked up from clinic pharmacy. Patient stated that she has no concerns or questions at this time. Codey Del Rosario
== END 2024-10-16 17:36 | disposition home or self-care (01) | DRG 398 ==
LOC: ER 10:58 → SDC 15:13 → 2ND 16:54
PROVIDERS: Surgery; Admitting Provider Student in an Organized Health Care Education/Training Program; Emergency Provider Emergency Medicine; PCP Family Medicine; Visit Provider Student in an Organized Health Care Education/Training Program
PROC: 0DTJ4ZZ Resection of Appendix, Percutaneous Endoscopic Approach (ICD-10-PCS; CPT 44970; principal; 2024-10-14 14:00)
DX: K35.32 Acute appendicitis with perforation, localized peritonitis, and gangrene, without abscess (principal); Z68.43 Body mass index [BMI] 50.0-59.9, adult; I10 Essential (primary) hypertension; F41.9 Anxiety disorder, unspecified; F32.A Depression, unspecified; E66.9 Obesity, unspecified; Z90.49 Acquired absence of other specified parts of digestive tract; Z79.899 Other long term (current) drug therapy; Z88.8 Allergy status to other drugs, medicaments and biological substances
CPT/HCPCS: 36415; 51702; 74177; 80053; 81001; 83605; 83690; 83735; 85025; 86803; 87040; 87389; 96374; J0131; J1100; J1200; J1650; J1885; J2250; J2270; J2405; J2543; J3010; J7120; Q9967